=== PATIENT | male | born 1975 | race Caucasian/White ===

== ENCOUNTER 2016-04-04 18:59 | Emergency (ER) | payer OTHER ==
[~2016-04-04] VITALS: Ht 162.6 cm; Wt 86.8 kg
[~2016-04-04 18:59] MED LIST: HYDR-3498 PO; LOPE2CAP PO
[2016-04-04 19:26] VITALS: Ht 162.6 cm; Wt 86.8 kg
[2016-04-04] MEDS ORDERED: FAMOTIDINE 20 MG INJ IV STA (20:24)
[2016-04-04] MEDS ORDERED: ONDANSETRON 4 MG INJ IV STA (20:24)
[2016-04-04] MEDS ORDERED: morphine 4 MG/ML VIAL IV STA (20:24)
--- NOTE | 2016-04-04 20:34 | ERD ---
ER Documentation Chief Complaint Date/Time DATE: 04/04/16 TIME: 20:30 Chief Complaint abdominal pain on and off x 2 hours HPI This is a 41-year-old male presenting to the emergency department complaining of chest pain and epigastric pain for the past hour. Patient states the pain is located midsternal radiating to the left side and complaining of 8 out of 10 epigastric pain. Patient states that the pain started before food, and he states that he ate a sandwich and some other food which worsened the pain. He denies any fever, nausea, vomiting, diaphoresis. Patient denies any history of heart disease, denies drug use. Patient states that he also has been having a cough for the past week and he took DayQuil 2 hours prior to being seen. ROS All systems reviewed and are negative except as per history of present illness. Medications Home Meds Active Scripts Famotidine* (Pepcid*) 20 Mg Tablet, 20 MG PO DAILY for 14 Days, TAB Prov:GILBERT FROST PA-C 04/04/16 Acetaminophen* (Tylenol*) 325 Mg Tablet, 2 TAB PO Q6 Y for PAIN AND OR ELEVATED TEMP, #20 TAB Prov:GILBERT FROST PA-C 04/04/16 Hydrocodone Bit-Acetaminophen* ([place]*) 5-325 Mg Tab, 1 TAB PO Q6 Y for PAIN, # 7 TAB Prov:ANNE BRADSHAW DO 07/17/15 Loperamide Hcl* (Imodium*) 2 Mg Capsule, 2 MG PO .AFTER EA LOOSE BM Y for DIARRHEA, #10 TAB Prov:ANNE BRADSHAW DO 07/17/15 Allergies Allergies: Coded Allergies: No Known Drug Allergies (Verified Allergy, Unknown, 04/04/16) PMhx/Soc Medical and Surgical Hx: pt denies Medical Hx, pt denies Surgical Hx History of Surgery: No Anesthesia Reaction: No Hx Neurological Disorder: No Hx Respiratory Disorders: No Hx Cardiac Disorders: No Hx Psychiatric Problems: No Hx Miscellaneous Medical Probl: No Hx Alcohol Use: No Hx Substance Use: No Hx Tobacco Use: No Smoking Status: Never smoker Physical Exam Vitals Vital Signs Date Time Temp Pulse Resp B/P Pulse Ox O2 Delivery O2 Flow Rate FiO2 04/04/16 19:26 98.6 86 20 131/97 97 Physical Exam GENERAL: well-developed/well-nourished, in no apparent distress, non-toxic appearing HENT: NC/AT, moist mucous membranes EYES: Conjunctiva normal NECK: Supple, no lymphadenopathy PULM: CTA bilaterally, no rales, rhonchi, or wheezing heard CV: Normal S1S2, RRR, good capillary refill GI: Soft, non-distended, tender to palpation epigastric region Normal bowel sounds, no masses or organomegaly felt on exam No gross peritonitis, no bruits Negative Rovsing, negative [place], negative McBurney's point, Negative CVAT BACK: No masses EXT: No clubbing, cyanosis, or edema NEURO: Alert and Orientated SKIN: Intact, normal turgor PSYCH: Normal mood and mentation Result Diagram: 04/04/16215004/04/162150 Results 24 hrs Laboratory Tests Test 04/04/16 21:51 Alanine Aminotransferase (ALT/SGPT) 111IU/L Albumin 4.1g/dl Albumin/Globulin Ratio 1.28 Alkaline Phosphatase 132IU/L Anion Gap 18 Aspartate Amino Transf (AST/SGOT) 44IU/L Basophils # 0.010^3/ul Basophils % 0.4% Blood Urea Nitrogen 17mg/dl Calcium Level 8.9mg/dl Carbon Dioxide Level 25mmol/L Chloride Level 103mmol/L Creatinine 0.91mg/dl Direct Bilirubin 0.00mg/dl Eosinophils # 0.110^3/ul Eosinophils % 1.4% Globulin 3.20g/dl Glucose Level 316mg/dl Hematocrit 44.7% Hemoglobin 15.7g/dl Indirect Bilirubin 0.1mg/dl Lipase 152U/L Lymphocytes # 1.510^3/ul Lymphocytes % 24.0% Mean Corpuscular Hemoglobin 29.8pg Mean Corpuscular Hemoglobin Concent 35.1g/dl Mean Corpuscular Volume 84.8fl Mean Platelet Volume 9.4fl Monocytes # 0.710^3/ul Monocytes % 11.0% Neutrophils # 4.010^3/ul Neutrophils % 63.2% Nucleated Red Blood Cells # 0.010^3/ul Nucleated Red Blood Cells % 0.0/100WBC Platelet Count 69707^3/UL Potassium Level 4.1mmol/L Red Blood Count 5.2710^6/ul Red Cell Distribution Width 12.8% Sodium Level 142mmol/L Total Bilirubin 0.1mg/dl Total Protein 7.3g/dl Troponin I < 0.012ng/ml White Blood Count 6.410^3/ul Current Medications Medications (Trade) Dose Ordered Sig/R[place]a Route PRN Reason Start Time Stop Time Status Last Admin Dose Admin Morphine Sulfate (morphine) 4 mg ONCE STAT IV 04/04/16 20:24 04/04/16 20:25 DC 04/04/16 20:24 Ondansetron HCl (Zofran Inj) 4 mg ONCE STAT IV 04/04/16 20:24 04/04/16 20:25 DC 04/04/16 21:55 Famotidine 20 mg 20 mg ONCE STAT IV 04/04/16 20:24 04/04/16 20:25 DC 04/04/16 20:24 Sodium Chloride (NS) 1,000 ml @ 1,000 mls/hr Q1H STAT IV 04/04/16 22:22 04/04/16 23:21 04/04/16 22:37 Procedures/MDM This is a 41-year-old male presenting to the emergency department complaining of midsternal chest pain that radiates bilaterally and epigastric pain for the past hour. I have reviewed past chart, patient has been here before for abdominal pain. My differentials include but not limited to gastritis, pancreatitis, cholecystitis, acute cardiopulmonary conditions including pneumonia, pulmonary embolism, myocardial infarction. An EKG was done in the ED did not show any evidence of STEMI. Chest x-ray did not show any evidence of infiltrates, pleural effusion or pneumothorax. IV access established. Lab work was drawn. CBC did not show any evidence of leukocytosis or anemia. Glucose is elevated around 315, patient was given 1 L fluids and it went downward, I have discussed with this patient that he will need to follow-up with a primary care physician regarding hyperglycemia. I will low suspicion for DKA. Lipase was normal. Troponin was negative. Patient was given Pepcid, morphine and Zofran in the ED. I have reassessed patient and he had full improvement of symptoms. An ultrasound of the gallbladder was done and radiologist stated that there was possible nonshadowing gallstone versus sludge , I will low suspicion for cholecystitis or cholangitis. Gallbladder ultrasound did show evidence of fatty liver which most likely due to nonalcoholic fatty liver. Patient appears well, stable vital signs. Patient is suitable to follow-up with his primary care physician in regards to hyperglycemia, abdominal pain, fatty liver and biliary colic. Prescription for Tylenol and Pepcid was provided. Discussed return to the ER for any worsening signs or symptoms. Patient understands and agrees with this plan EKG: read and signed off by myself and Rate/Rhythm: Normal Sinus Rhythm at 80bpm QRS, ST, T-waves: No changes consistent w/ acute ischemia Impression: No evidence of ischemia or arrhythmia Departure Diagnosis: Primary Impression: Biliary colic Additional Impressions: Chest pain Chest pain type: unspecified Qualified Code: R07.9 - Chest pain, unspecified type Fatty liver Hyperglycemia Abdominal pain Abdominal location: epigastric Qualified Code: R10.13 - Epigastric pain Condition: Stable GILBERT FROST PA-C Apr 04, 2016 20:34
--- NOTE | 2016-04-04 21:54 | RADRPT ---
PROCEDURE: US Abdomen. CLINICAL INDICATION: Abdominal Pain TECHNIQUE: Multiple real-time images were acquired of the patient's abdomen and retroperitoneum ut ilizing a high resolution transducer. COMPARISON: None available FINDINGS: The liver demonstrates diffuse increased echogenicity. No focal lesions are identified. The liver m easures 19.0 cm in length. The gallbladder is contracted. There is a possible sludge ball or nonsha dowing stone in the gallbladder neck. No intra or extrahepatic biliary dilatation is seen. The comm on bile duct measures 1 mm in maximal dimension. The visualized portions of the pancreas are unrema rkable. No free fluid is identified. The right kidney measures 10.9 cm in long dimension. There is no right hydronephrosis or visualized renal calculi. IMPRESSION: 1. Contracted gallbladder. Possible sludge ball or nonshadowing stone in the gallbladder neck. Co nsider repeat examination when the patient is n.p.o. 2. Fatty and enlarged liver, 19.0 cm in length. 3. No biliary dilatation or right hydronephrosis. RPTAT: HBST .Marquise Rhoades MD, Date Time Electronically viewed and signed by .Marquise Rhoades MD, on 04/04/2016 21:54 .T/
[2016-04-04 22:12] LABS: ALBUMIN 4.1 g/dl (3.3-4.9); BASOPHILS % 0.4 % (0.0-2.0); CHLORIDE 103 mmol/L (97-110); EOSINOPHILS # 0.1 10^3/ul (0.0-0.5); EOSINOPHILS % 1.4 % (0.0-7.0); HEMATOCRIT 44.7 % (42.0-52.0); HEMOGLOBIN 15.7 g/dl (14.0-18.0); LYMPHOCYTES # 1.5 10^3/ul (0.8-2.9); MEAN CORPUSCULAR HEMOGLOBIN 29.8 pg (29.0-33.0); MEAN CORPUSCULAR HGB CONC 35.1 g/dl (32.0-37.0); MEAN CORPUSCULAR VOLUME 84.8 fl (82.0-101.0); MEAN PLATELET VOLUME 9.4 fl (7.4-10.4); MONOCYTE # 0.7 10^3/ul (0.3-0.9); NEUTROPHILS % 63.2 % (39.0-77.0); PLATELET COUNT 172 10^3/UL (140-440); POTASSIUM 4.1 mmol/L (3.5-5.1); RED BLOOD COUNT 5.27 10^6/ul (4.70-6.10); RED CELL DISTRIBUTION WIDTH 12.8 % (11.5-14.5); SODIUM 142 mmol/L (135-144); UNCORRECTED WBC 6.4 10^3/ul (4.8-10.8); WHITE BLOOD COUNT 6.4 10^3/ul (4.8-10.8)
[2016-04-04 22:14] LABS: CREATININE 0.91 mg/dl (0.61-1.24)
[2016-04-04 22:15] LABS: ALANINE AMINOTRANSFERASE 111 IU/L (13-69); ALBUMIN/GLOBULIN RATIO 1.28; ALKALINE PHOSPHATASE 132 IU/L (42-121); ANION GAP 18 (8-16); ASPARTATE AMINO TRANSFERASE 44 IU/L (15-46); BILIRUBIN,INDIRECT 0.1 mg/dl (0-1.1); BILIRUBIN,TOTAL 0.1 mg/dl (0.2-1.3); BLOOD UREA NITROGEN 17 mg/dl (7-20); CALCIUM 8.9 mg/dl (8.4-10.2); CARBON DIOXIDE 25 mmol/L (21-31); GLUCOSE 316 mg/dl (70-220); TOTAL PROTEIN 7.3 g/dl (6.1-8.1)
[2016-04-04 22:20] LABS: CONDITION 1
[2016-04-04] MEDS ORDERED: SOD CHLORIDE 0.9% 1,000 ML IV STA (22:22)
--- NOTE | 2016-04-04 22:25 | RADRPT ---
PROCEDURE: XR Chest. CLINICAL INDICATION: Chest pain. TECHNIQUE: Single frontal view. COMPARISON: None. FINDINGS: The lungs are clear. The heart size is normal. There is no pleural effusion. There is no pneumothorax. IMPRESSION: 1. Normal chest radiograph. RPTAT: QQ .Steve Interiano MD, Date Time Electronically viewed and signed by .Steve Interiano MD, on 04/04/2016 22:24 .R/
[2016-04-04 22:29] LABS: TROPONIN-I < 0.012 ng/ml (0.00-0.12)
[2016-04-04] MEDS ORDERED: FAMO-18 PO (22:35)
[2016-04-04] MEDS ORDERED: ACET325T33 PO (22:35)
[2016-04-05 02:02] VITALS: BP 132/80; PULSE 78; RESP 78; TEMP 98.3
== END 2016-04-05 02:04 | disposition home or self-care (01) ==
LOC: FTE 18:59
DX: K80.50 Calculus of bile duct without cholangitis or cholecystitis without obstruction (principal); K76.0 Fatty (change of) liver, not elsewhere classified; R73.9 Hyperglycemia, unspecified; R10.13 Epigastric pain
CPT/HCPCS: 36415; 71010; 76705; 80053; 83690; 84484; 85025; 93005; 96374; 96375; J2270; J2405; J7030; Z7502; Z7610

== ENCOUNTER 2016-07-27 20:41 | Inpatient (IN) | payer OTHER ==
[~2016-07-27] VITALS: Ht 162.6 cm; Wt 87.5 kg
[~2016-07-27 20:41] MED LIST changes: +ACET325T33 PO; +FAMO-18 PO
[2016-07-27] MEDS ORDERED: LACTATED RINGER'S 1,000 ML IV STA (22:15)
[2016-07-27] MEDS ORDERED: SOD CHLORIDE 0.9% 1,000 ML IV STA (22:15)
[2016-07-27] MEDS ORDERED: SOD CHLORIDE 0.9% 500 ML IV STA (22:15)
[2016-07-27 22:27] LABS: ADD SCAN DIFF NO
[2016-07-27 22:29] LABS: BASOPHILS % 0.2 % (0.0-2.0); EOSINOPHILS % 0.3 % (0.0-7.0); HEMATOCRIT 24.4 % (42.0-52.0); HEMOGLOBIN 8.4 g/dl (14.0-18.0); LYMPHOCYTES # 2.2 10^3/ul (0.8-2.9); LYMPHOCYTES % 17.8 % (15.0-51.0); MEAN CORPUSCULAR HEMOGLOBIN 29.4 pg (29.0-33.0); MEAN CORPUSCULAR HGB CONC 34.4 g/dl (32.0-37.0); MEAN CORPUSCULAR VOLUME 85.3 fl (82.0-101.0); MEAN PLATELET VOLUME 11.2 fl (7.4-10.4); NEUTROPHIL # 9.1 10^3/ul (1.6-7.5); NEUTROPHILS % 72.6 % (39.0-77.0); NUCLEATED RED BLOOD CELLS # 0.1 10^3/ul (0.0-0.0); PLATELET COUNT 191 10^3/UL (140-415); RED BLOOD COUNT 2.86 10^6/ul (4.70-6.10); RED CELL DISTRIBUTION WIDTH 12.6 % (11.5-14.5); WHITE BLOOD COUNT 12.5 10^3/ul (4.8-10.8)
[2016-07-27 22:46] LABS: ALANINE AMINOTRANSFERASE 48 IU/L (13-69); ALBUMIN/GLOBULIN RATIO 2.22; ALKALINE PHOSPHATASE 70 IU/L (42-121); ANION GAP 11 (8-16); ASPARTATE AMINO TRANSFERASE 16 IU/L (15-46); BILIRUBIN,INDIRECT 0.2 mg/dl (0-1.1); BILIRUBIN,TOTAL 0.2 mg/dl (0.2-1.3); BLOOD UREA NITROGEN 28 mg/dl (7-20); CALCIUM 8.4 mg/dl (8.4-10.2); CARBON DIOXIDE 24 mmol/L (21-31); CHLORIDE 103 mmol/L (97-110); CREATININE 0.81 mg/dl (0.61-1.24); MAGNESIUM 1.9 mg/dl (1.7-2.5); POTASSIUM 4.3 mmol/L (3.5-5.1); SODIUM 134 mmol/L (135-144); TOTAL PROTEIN 5.8 g/dl (6.1-8.1)
[2016-07-27 22:54] LABS: GLUCOSE 441 mg/dl (70-220)
[2016-07-27 22:57] LABS: TROPONIN-I < 0.012 ng/ml (0.00-0.12)
--- NOTE | 2016-07-27 23:00 | RADRPT ---
PROCEDURE: CT Brain without contrast. CLINICAL INDICATION: Headache. Hyperglycemia. TECHNIQUE: A CT of the brain was performed on a multidetector CT scanner utilizing axial sections from the skull base through the vertex without contrast. Images were reviewed on a high-resolution [employer] workstation. Exam CTDI = 42.69 mGy and the DLP = 720.23 mGy-cm. One or more of the following dose reduction techniques were used: Automated exposure control Adjustment of the mA and/or kV according to patient size. Use of iterative reconstruction technique. COMPARISON: None available FINDINGS: There is no evidence of intracranial hemorrhage, mass effect or midline shift. No abnormal intra-ax ial or extra-axial fluid collections are seen. The density of the brain is normal and the ko/whit e matter differentiation is well preserved. The osseous structures are unremarkable. Paranasal sin uses are clear. IMPRESSION: 1. No intracranial hemorrhage, mass effect or midline shift. RPTAT: HHO .Lynette Hobbs MD, MD Date Time Electronically viewed and signed by .Lynette Hobbs MD, on 07/27/2016 22:59 .O/
[2016-07-27 23:19] LABS: ADD UMIC NO; UR BILIRUBIN (Dip) NEGATIVE (NEGATIVE); UR BLOOD (Dip) NEGATIVE (NEGATIVE); UR CLARITY CLEAR (CLEAR); UR COLOR LT. YELLOW (YELLOW); UR GLUCOSE (Dip) >=1000 % (NEGATIVE); UR KETONES (Dip) 15 (NEGATIVE); UR LEUKOCYTE ESTERASE (Dip) NEGATIVE (NEGATIVE); UR NITRITE (Dip) NEGATIVE (NEGATIVE); UR TOTAL PROTEIN (Dip) NEGATIVE (NEGATIVE); UR UROBILINOGEN (Dip) 0.2 E.U./dL (0.1-1.0)
[2016-07-27] MEDS ORDERED: KETOROLAC 30 MG INJ IV STA (23:45)
[2016-07-28] MEDS ORDERED: METOCLOPRAMIDE 10 MG INJ IV ONE
--- NOTE | 2016-07-28 00:01 | RADRPT ---
PROCEDURE: XR Chest. CLINICAL INDICATION: Headache. Hyperglycemia.. TECHNIQUE: Single frontal chest x-ray. COMPARISON: None. FINDINGS: The cardiomediastinal silhouette is unremarkable. There is no congestive heart failure.. No focal i nfiltrate is seen. There is no pleural effusion. There is no pneumothorax. The osseous structures are unremarkable. IMPRESSION: 1. No active disease. RPTAT: HMVK .Chris Viveros MD, MD Date Time Electronically viewed and signed by .Chris Viveros MD, on 07/28/2016 00:00 .K/
--- NOTE | 2016-07-28 00:24 | ERA ---
ER Documentation Chief Complaint Date/Time DATE: 07/28/16 TIME: 00:24 Chief Complaint dizziness, blurry vision, dry mouth x 2 days, headache, chest pain HPI 41-year-old previously healthy male presenting with complaints of generalized weakness, dizziness, palpitations, blurry vision, and dry mouth for the past 2 days. He has also been suffering from a gradual onset headache for the last 2 days as well. He denies any associated chest pain or shortness of breath. No fevers, chills, recent URI, cough, abdominal pain, nausea, vomiting dysuria, diarrhea. He has noticed that he has been very thirsty for the past 2 days drinking a lot of water and urinating a lot. ROS All systems reviewed and are negative except as per history of present illness. Medications Home Meds Discontinued Scripts Famotidine* (Pepcid*) 20 Mg Tablet, 20 MG PO DAILY for 14 Days, TAB Prov:GILBERT FROST PA-C 04/04/16 Acetaminophen* (Tylenol*) 325 Mg Tablet, 2 TAB PO Q6 Y for PAIN AND OR ELEVATED TEMP, #20 TAB Prov:GILBERT FROST PA-C 04/04/16 Hydrocodone Bit-Acetaminophen* ([place]*) 5-325 Mg Tab, 1 TAB PO Q6 Y for PAIN, # 7 TAB Prov:ANNE BRADSHAW DO 07/17/15 Loperamide Hcl* (Imodium*) 2 Mg Capsule, 2 MG PO .AFTER EA LOOSE BM Y for DIARRHEA, #10 TAB Prov:ANNE BRADSHAW DO 07/17/15 Allergies Allergies: Coded Allergies: No Known Drug Allergies (Verified Allergy, Unknown, 07/27/16) PMhx/Soc Medical and Surgical Hx: pt denies Medical Hx, pt denies Surgical Hx History of Surgery: No Anesthesia Reaction: No Hx Neurological Disorder: No Hx Respiratory Disorders: No Hx Cardiac Disorders: No Hx Psychiatric Problems: No Hx Miscellaneous Medical Probl: No Hx Alcohol Use: No Hx Substance Use: No Hx Tobacco Use: No Smoking Status: Never smoker FmHx Family History: No coronary disease, No diabetes Physical Exam Vitals Vital Signs Date Time Temp Pulse Resp B/P Pulse Ox O2 Delivery O2 Flow Rate FiO2 07/27/16 23:07 109 16 105/68 100 Room Air 07/27/16 20:44 99.2 144 20 110/69 98 Physical Exam Const: Nontoxic, no apparent distress, pale Head: Atraumatic Eyes: Normal Conjunctiva ENT: Dry oral mucosa Neck: Full range of motion..~ No meningismus. Resp: Clear to auscultation bilaterally Cardio: Tachycardic with regular rhythm, no murmurs. 2+ distal pulses Abd: Soft, non tender, non distended. Normal bowel sounds Skin: No petechiae or rashes. Generalized pallor noted Back: No midline or flank tenderness Ext: No cyanosis, or edema Neur: Awake and alert and oriented 3, cranial nerves intact, strength and sensations intact in all 4 extremities Psych: Normal Mood and Affect Result Diagram: 07/27/16215507/27/162155 Results 24 hrs Laboratory Tests Test 07/27/16 21:56 07/27/16 22:09 07/27/16 23:05 White Blood Count 12.510^3/ul Red Blood Count 2.8610^6/ul Hemoglobin 8.4g/dl Hematocrit 24.4% Mean Corpuscular Volume 85.3fl Mean Corpuscular Hemoglobin 29.4pg Mean Corpuscular Hemoglobin Concent 34.4g/dl Red Cell Distribution Width 12.6% Platelet Count 52392^3/UL Mean Platelet Volume 11.2fl Neutrophils % 72.6% Lymphocytes % 17.8% Monocytes % 8.0% Eosinophils % 0.3% Basophils % 0.2% Nucleated Red Blood Cells % 1.0/100WBC Neutrophils # 9.110^3/ul Lymphocytes # 2.210^3/ul Monocytes # 1.010^3/ul Eosinophils # 0.010^3/ul Basophils # 0.010^3/ul Nucleated Red Blood Cells # 0.110^3/ul Sodium Level 134mmol/L Potassium Level 4.3mmol/L Chloride Level 103mmol/L Carbon Dioxide Level 24mmol/L Anion Gap 11 Blood Urea Nitrogen 28mg/dl Creatinine 0.81mg/dl Glucose Level 441mg/dl Lactic Acid Level 2.6mmol/L Calcium Level 8.4mg/dl Phosphorus Level 3.0mg/dl Magnesium Level 1.9mg/dl Total Bilirubin 0.2mg/dl Direct Bilirubin 0.00mg/dl Indirect Bilirubin 0.2mg/dl Aspartate Amino Transf (AST/SGOT) 16IU/L Alanine Aminotransferase (ALT/SGPT) 48IU/L Alkaline Phosphatase 70IU/L Troponin I < 0.012ng/ml Total Protein 5.8g/dl Albumin 4.0g/dl Globulin 1.80g/dl Albumin/Globulin Ratio 2.22 Bedside Glucose 455mg/dL Urine Color LT. YELLOW Urine Clarity CLEAR Urine pH 5.5 Urine Specific [place] <=1.005 Urine Ketones 15 Urine Nitrite NEGATIVE Urine Bilirubin NEGATIVE Urine Urobilinogen 0.2 E.U./dL Urine Leukocyte Esterase NEGATIVE Urine Hemoglobin NEGATIVE Urine Glucose >=1000% Urine Total Protein NEGATIVE Current Medications Medications (Trade) Dose Ordered Sig/[place] Route PRN Reason Start Time Stop Time Status Last Admin Dose Admin Sodium Chloride 500 ml @ 500 mls/hr Q1H STAT IV 07/27/16 22:15 07/27/16 23:14 DC 07/27/16 22:29 Sodium Chloride 1,000 ml @ 1,050 mls/hr Q58M STAT IV 07/27/16 22:15 07/27/16 23:12 DC 07/27/16 22:21 Lactated Ringer's (Lr) 1,000 ml @ 1,000 mls/hr Q1H STAT IV 07/27/16 22:15 07/27/16 23:14 DC 07/27/16 22:21 Ketorolac Tromethamine (Toradol) 30 mg ONCE STAT IV 07/27/16 23:45 07/27/16 23:46 DC 07/27/16 23:52 Metoclopramide HCl (Reglan) 10 mg ONCE ONCE IV 07/28/16 00:00 07/28/16 00:01 DC 07/27/16 23:52 Procedures/MDM EMERGENT LABS AND DIAGNOSTIC STUDIES: Lab Results above were reviewed and interpreted by me. CBC shows leukocytosis and anemia BMP shows mild hyponatremia, hyperglycemia, elevated BUN, no evidence of acidosis Lactate elevated 2.6 Urinalysis shows no evidence of infection 12-lead EKG was interpreted by Ty Mao MD: Sinus tachycardia at 140 beats per minute Normal axis Normal intervals No acute ST or T wave changes suggestive of acute ischemia or STEMI. Radiology Results as interpreted by Radiology below were reviewed by Yvette Mao MD: Chest x-ray shows no acute abnormalities CT head shows no acute abnormalities Initial Nursing notes reviewed. Previous Medical Records requested via the Electronic Health Record. EMERGENCY DEPARTMENT COURSE / MEDICAL DECISION MAKING: Patient is presenting with hypotension and tachycardia with signs of severe dehydration on exam. 30 cc/kg of IV fluids were started. Accu-Chek was done, confirming hyperglycemia. Labs confirmed evidence of new onset diabetes without evidence of acidosis. His lactate is elevated, however I do not suspect sepsis. This is more likely secondary to hypoperfusion due to hypovolemia. He does not have any evidence of infection on exam. It is unclear why he is anemic, as he has no evidence of blood loss or any history of blood loss. Patient will be admitted for further management of new onset diabetes and further hydration. Insulin subcutaneously was given in the ED 8 units. I will defer any further workup and management to the inpatient team as the patient vitals have stabilized in the ED. Critical Care Time: 45 minutes Treatments/Evaluations: Close monitoring and treatment of unstable vital signs, cardiorespiratory, and neurologic status, while maintaining tight balance of fluid, respiratory, and cardiac interventions. This time includes discussing the case with the patient and the patients family. This time does not include all procedures stated elsewhere in this record. This time also includes reviewing old records, labs and radiological studies. This time includes examining and re-examining the patient. Additionally, this time also includes arranging care with admitting and consulting physicians. Accepting Care Team: Current data and ongoing care discussed. Time: Time of admission Primary Provider: Nancy Koch Consulting: none Outstanding Data: none Departure Diagnosis: Primary Impression: Diabetes mellitus, new onset Additional Impressions: Dehydration Lactic acidosis Anemia Qualified Code: D64.89 - Anemia due to other cause, not classified Condition: Serious CARLOS MAO MD Jul 28, 2016 00:24
[2016-07-28] MEDS ORDERED: ONDANSETRON 4 MG INJ IV PRN (00:30)
[2016-07-28] MEDS ORDERED: ACETAMINOPHEN 325 MG TAB PO PRN (00:30)
[2016-07-28] MEDS ORDERED: INSULIN ASPART [NOVOLOG] 3 ML PEN SC ONE (01:00)
[2016-07-28] MEDS ORDERED: SOD CHLORIDE 0.9% 500 ML IV ONE (02:30)
[2016-07-28 02:38] VITALS: BP 109/58; RESP 18
[2016-07-28 02:44] VITALS: Ht 162.6 cm; Wt 87.5 kg
[2016-07-28] MEDS ORDERED: DEXTROSE 50% 50 ML SYRINGE IV PRN ×2 (03:30)
[2016-07-28] MEDS ORDERED: GLUCOSE GEL 15 GRAM TUBE PO PRN ×2 (03:30)
[2016-07-28] MEDS ORDERED: GLUCAGON 1 MG INJ IM PRN (03:30)
[2016-07-28] MEDS ORDERED: GLUCOSE GEL 15 GRAM TUBE BUCCAL PRN (03:30)
[2016-07-28] MEDS ORDERED: HYDROCODONE/APAP (5/325) TAB PO PRN (04:00)
[2016-07-28 07:48] LABS: MODE ROOM AIR; MetHgb Venous 0.7 %; Sample Type Blood venous; Venous COHb 0.3 %; Venous Fraction OxyHgb 86.9 %; Venous Total Hemglobin 8.3 g/dl
[2016-07-28 08:00] VITALS: BP 97/54; RESP 19
[2016-07-28] MEDS: INSULIN ASPART [NOVOLOG] 3 ML PEN SC SCH ×4 (08:40→23:17)
--- NOTE | 2016-07-28 14:55 | HP ---
Date/Time of Note Date/Time of Note DATE: 07/28/16 TIME: 12:34 Assessment/Plan VTE Prophylaxis VTE Prophylaxis Intervention: ambulation (as tolerated), SCD's Lines/Catheters IV Catheter Type (from Nrsg): Saline Lock Assessment/Plan Assessment/Plan -Diabetes mellitus, new onset. BS on admission 455- lowered to 283. Will get endocrinology - Glycemic control - Hb AIC - 1800 jeff ADA DIET - Dietary consult - tinter photograph consult - Leukocytosis- possibly sec to stress reaction, afebrile, lactic acid 1.3 -Dehydration- cont IVF- 1/2 NS at 60 cc/hr -Lactic acidosis - LACTIC ACID 1.3 -Anemia - CBC am - monitor H/H Plan of care dw Dr Armas/staff/family HPI/ROS Admit Date/Time Admit Date/Time Jul 28, 2016 at 00:24 Hx of Present Illness Chief Complaint dizziness, blurry vision, dry mouth x 2 days, headache, chest pain HPI 41-year-old previously healthy male presenting with complaints of generalized weakness, dizziness, palpitations, blurry vision, and dry mouth for the past 2 days. He has also been suffering from a gradual onset headache for the last 2 days as well. He denies any associated chest pain or shortness of breath. No fevers, chills, recent URI, cough, abdominal pain, nausea, vomiting dysuria, diarrhea. He has noticed that he has been very thirsty for the past 2 days drinking a lot of water and urinating a lot. ROS All systems reviewed and are negative except as per history of present illness. Medications Home Meds Discontinued Scripts Famotidine* (Pepcid*) 20 Mg Tablet, 20 MG PO DAILY for 14 Days, TAB Prov:GILBERT FROST PA-C 04/04/16 Acetaminophen* (Tylenol*) 325 Mg Tablet, 2 TAB PO Q6 Y for PAIN AND OR ELEVATED TEMP, #20 TAB Prov:GILBERT FROST PA-C 04/04/16 Hydrocodone Bit-Acetaminophen* ([place]*) 5-325 Mg Tab, 1 TAB PO Q6 Y for PAIN, # 7 TAB Prov:ANNE BRADSHAW DO 07/17/15 Loperamide Hcl* (Imodium*) 2 Mg Capsule, 2 MG PO .AFTER EA LOOSE BM Y for DIARRHEA, #10 TAB Prov:ANNE BRADSHAW DO 07/17/15 Allergies Allergies: Coded Allergies: No Known Drug Allergies (Verified Allergy, Unknown, 07/27/16) ROS Constitutional: improved Eyes: no complaints Respiratory: no complaints Cardiovascular: no complaints Gastrointestinal: no complaints Genitourinary: no complaints Musculoskeletal: no complaints Skin: no complaints Neurologic: no complaints Endocrine: dry skin PMH/Family/Social Past Medical History PMhx/Soc Medical and Surgical Hx: pt denies Medical Hx, pt denies Surgical Hx History of Surgery: No Anesthesia Reaction: No Hx Neurological Disorder: No Hx Respiratory Disorders: No Hx Cardiac Disorders: No Hx Psychiatric Problems: No Hx Miscellaneous Medical Probl: No Hx Alcohol Use: No Hx Substance Use: No Hx Tobacco Use: No Smoking Status: Never smoker FmHx Family History: No coronary disease, No diabetes Social History Alcohol Use: none Smoking Status: Never smoker Drug Use: none Exam/Review of Systems Vital Signs Vitals Vital Signs Date Time Temp Pulse Resp B/P Pulse Ox O2 Delivery O2 Flow Rate FiO2 07/28/16 08:00 97.9 86 19 97/54 99 07/28/16 02:09 Room Air Intake and Output 07/27/16 07/27/16 07/28/16 15:00 23:00 07:00 Intake Total 700 ml Balance 700 ml Exam Constitutional: alert, oriented Psych: nl mood/affect ENMT: mucosa pink and moist Respiratory: clear to auscultation, normal air movement Cardiovascular: nl pulses, regular rate and rhythm Gastrointestinal: non-tender, soft Musculoskeletal: nl extremities to inspection Extremities: normal pulses Neurological: nl mental status, nl speech Skin: nl turgor Labs Result Diagram: 07/27/16215507/27/162155 Medications Medications Current Medications Diagnostic Test (Pha) (Accu-Chek) 1 ea 02 XX ; Start 07/29/16 at 02:00 Miscellaneous Information 1 ea NOTE XX ; Start 07/28/16 at 03:30 Glucose (Glutose) 15 gm Q15M PRN PO DECREASED GLUCOSE; Start 07/28/16 at 03:30 Glucose (Glutose) 22.5 gm Q15M PRN PO DECREASED GLUCOSE; Start 07/28/16 at 03: 30 Dextrose (D50w Syringe) 25 ml Q15M PRN IV DECREASED GLUCOSE; Start 07/28/16 at 03:30 Dextrose (D50w Syringe) 50 ml Q15M PRN IV DECREASED GLUCOSE; Start 07/28/16 at 03:30 Glucagon (Glucagen) 1 mg Q15M PRN IM DECREASED GLUCOSE; Start 07/28/16 at 03:30 Glucose (Glutose) 15 gm Q15M PRN BUCCAL DECREASED GLUCOSE; Start 07/28/16 at 03 :30 Acetaminophen/ Hydrocodone Bitart ([place] (5/325)) 1 tab Q6H PRN PO PAIN Last administered on 07/28/16t 03:50; Admin Dose 1 TAB; Start 07/28/16 at 04:00 Procedures Procedures Procedures/MDM EMERGENT LABS AND DIAGNOSTIC STUDIES: Lab Results above were reviewed and interpreted by me. CBC shows leukocytosis and anemia BMP shows mild hyponatremia, hyperglycemia, elevated BUN, no evidence of acidosis Lactate elevated 2.6 Urinalysis shows no evidence of infection 12-lead EKG was interpreted by Ty Mao MD: Sinus tachycardia at 140 beats per minute Normal axis Normal intervals No acute ST or T wave changes suggestive of acute ischemia or STEMI. LISETTE MELENDEZ Jul 28, 2016 12:48
[2016-07-28] MEDS ORDERED: SOD CHLORIDE 0.45% 1,000 ML IV SCH (15:00)
[2016-07-28] MEDS ORDERED: INSULIN GLARGINE [LANtus] 3 ML PEN SC SCH (16:00)
[2016-07-28] MEDS ORDERED: INSULIN ASPART [NOVOLOG] 3 ML PEN SC SCH (17:35)
[2016-07-28 17:49] LABS: ADD SCAN DIFF NO
[2016-07-28 18:15] LABS: CALCIUM 7.3 mg/dl (8.4-10.2); CREATININE 0.67 mg/dl (0.61-1.24); POTASSIUM 3.8 mmol/L (3.5-5.1)
[2016-07-28 18:25] LABS: ABNORMAL IP MESSAGE 1; HEMATOCRIT 14.7 % (42.0-52.0); MEAN CORPUSCULAR HEMOGLOBIN 30.9 pg (29.0-33.0); MEAN CORPUSCULAR HGB CONC 34.7 g/dl (32.0-37.0); MEAN CORPUSCULAR VOLUME 89.1 fl (82.0-101.0); MEAN PLATELET VOLUME 11.3 fl (7.4-10.4); PLATELET COUNT 141 10^3/UL (140-415); RED BLOOD COUNT 1.65 10^6/ul (4.70-6.10); RED CELL DISTRIBUTION WIDTH 13.2 % (11.5-14.5); WHITE BLOOD COUNT 8.9 10^3/ul (4.8-10.8)
[2016-07-28] MEDS ORDERED: SOD CHLORIDE 0.9% 250 ML IV* ONE (18:33)
--- NOTE | 2016-07-28 18:48 | CONS ---
DATE OF ADMISSION: 07/28/2016 DATE OF CONSULTATION: 07/28/2016 GASTROENTEROLOGY CONSULTATION HISTORY OF PRESENT ILLNESS: A 41-year-old male who comes to the emergency room complaining of heada nigel, profound weakness, increased thirst and also abdominal pain, nausea, vomiting and heartburn. I n the ER, the patient was evaluated. The blood sugar was high. He was admitted for the above furth er management. GI consult was called in for anemia. Patient is sleepy because he got some narcotic shot most of the information obtained from the and also mother. No chest pain, no shortness o f breath. Review of systems otherwise negative. HOME MEDICATIONS: Reviewed. He was on: 1. Famotidine. 2. Tylenol. 3. [place]. 4. Loperamide. ALLERGIES: NONE. FAMILY HISTORY: Nothing significant. SOCIAL HISTORY: Does not smoke or drink. FAMILY HISTORY: Nothing contributory. PHYSICAL EXAMINATION: GENERAL: Well-built, nourished, not in distress. VITAL SIGNS: Stable. HEENT: Unremarkable. NECK: Supple, no thyromegaly, no lymphadenopathy. CARDIOVASCULAR: No murmur, gallop or click. LUNGS: Clear. ABDOMEN: Benign. EXTREMITIES: No edema. CENTRAL NERVOUS SYSTEM: Grossly within normal limits. LABORATORY DATA: His hematocrit is 24.4, WBC is 12.5, normochromic, normocytic. Platelet count was normal. There are no atypical cells identified. Chemistry: Blood sugar is 264. BUN is 28, creati nine is 0.81. Liver function tests all within normal limits. IMPRESSION: 1. Diabetes mellitus, new onset. 2. Anemia. 3. Abdominal pain, nausea, vomiting. PLAN: Control the blood sugar, hemoglobin A1c, diabetic diet. Continue H2 slime and Zofran for n ausea and vomiting, and we will work him up for the anemia. B12, folic acid, ferritin level, retic count and stool for occult blood. Based on that finding, we will decide regarding further workup. Thank you for your kind referral. Dictated By: WIL STALEY/EMMA Conf#: [id number] DID#: [id number] CC: WIL ESTRADA MD; NEREYDA CISSE MD;*EndCC*
--- NOTE | 2016-07-28 18:50 | EN ---
Date/Time of Note Date/Time of Note DATE: 07/28/16 TIME: 18:48 Event Note Medicine Medicine Event Note Rapid Response Note Presented to evaluate patient after RR called overhead. 41 yo M with new onset DM in hospital for hyperglycemia. RR called bc when pt ambualted out of the washroom, family reported that he appeared to have fainted , hitting his head on the way down. My exam: vitals notable for HR in the 120s laying in bed, moaning, pale, following commands tachy lungs clear abd soft no rashes accucheck 330 RN informed me she was away during pt's fall as she was taking a critical lab that pt's hgb was 5. Just as I saw leaving the room I was informed pt's primary attending and contract paralegal client consultant were also on the arteaga. We briefly discussed the matter and they stated that they were aware and would be coordinating appropriate follow up. Pt's RN appraised of this info. Erlin Hicks MD panel hospitalist ERLIN HICKS MD Jul 28, 2016 18:50
[2016-07-28 19:12] LABS: LYMPHOCYTES # 1.9 10^3/ul (0.8-2.9); MONOCYTE # 0.2 10^3/ul (0.3-0.9); NEUTROPHIL # 6.7 10^3/ul (1.6-7.5)
[2016-07-28 19:13] LABS: PLATELET ESTIMATE PLT APPEAR ADEQUATE
[2016-07-28] MEDS: SOD CHLORIDE 0.9% 1,000 ML IV SCH (19:55)
[2016-07-28 20:00] VITALS: PULSE 136; PULSE 137; RESP 12
[2016-07-28 21:00] VITALS: BP 100/55; PULSE 140; RESP 21
[2016-07-28 22:00] VITALS: BP 107/74; PULSE 138
[2016-07-28 23:00] VITALS: BP 121/65; PULSE 141
[2016-07-28] MEDS: ACETAMINOPHEN 325 MG TAB PO PRN (23:22)
[2016-07-29] VITALS (32 sets, daily range): BP systolic 83–127; BP diastolic 46–103; PULSE 75–126; RESP 13–20
[2016-07-29] MEDS: PIPER-TAZO 3.375 GM IV (PMX) 100 ML IVPB SCH ×5 (01:18→23:59)
[2016-07-29] MEDS ORDERED: ACCU-CHEK XX SCH ×3 (02:00)
[2016-07-29] MEDS: SOD CHLORIDE 0.9% 1,000 ML IV SCH ×2 (03:00→13:45)
[2016-07-29] MEDS: PANTOPRAZOLE 40 MG INJ IV SCH ×2 (05:50→18:32)
[2016-07-29 07:12] LABS: ADD SCAN DIFF NO
--- NOTE | 2016-07-29 07:19 | PN ---
DATE: 07/28/2016 ADDENDUM Patient recently had a syncopal episode. Patient was in the restroom and was trying to get up from the toilet seat. Patient also looked pale and lethargic, although he was responsive. Meanwhile, a stat CBC revealed hemoglobin of 5.1. The patient's vital signs were stable. I spoke with Dr. Lawrence from GI standpoint. The patient will be transferred to the ICU. The patient was put on Protonix and will receive 3 units of PRBC. Stool studies have been ordered. We will also obtain coagulation profile. Will continue to monitor his H and H. The patient did not have any hematemesis or melena. No reported abdominal pain. The patient does not have thrombocytopenia. Further management will depend on patient's hospital course. Plan of care discussed with the patient's with the help of systems software manager. Dictated By: NEREYDA MCKINNEY/EMMA Conf#: [id number] DID#: [id number] MTDArlet
[2016-07-29 07:25] LABS: ABNORMAL IP MESSAGE 1; BASOPHILS % 0.1 % (0.0-2.0); EOSINOPHILS % 0.3 % (0.0-7.0); HEMATOCRIT 19.1 % (42.0-52.0); LYMPHOCYTES # 2.1 10^3/ul (0.8-2.9); LYMPHOCYTES % 22.1 % (15.0-51.0); MEAN CORPUSCULAR HGB CONC 35.1 g/dl (32.0-37.0); MEAN CORPUSCULAR VOLUME 88.4 fl (82.0-101.0); MONOCYTE # 0.8 10^3/ul (0.3-0.9); MONOCYTES % 8.6 % (0.0-11.0); NEUTROPHIL # 6.1 10^3/ul (1.6-7.5); NEUTROPHILS % 66.3 % (39.0-77.0); NUCLEATED RED BLOOD CELLS # 0.2 10^3/ul (0.0-0.0); NUCLEATED RED BLOOD CELLS% 1.8 /100WBC (0.0-0.0); PLATELET COUNT 121 10^3/UL (140-415); RED BLOOD COUNT 2.16 10^6/ul (4.70-6.10); RED CELL DISTRIBUTION WIDTH 13.3 % (11.5-14.5); WHITE BLOOD COUNT 9.3 10^3/ul (4.8-10.8)
[2016-07-29 07:27] LABS: RETICULOCYTE COUNT % 5.1 % (0.5-1.5)
[2016-07-29 07:33] LABS: HEMOGLOBIN 6.7 g/dl (14.0-18.0)
[2016-07-29 07:34] LABS: INR 1.2; PROTIME 15.3 Sec (12.2-14.2); PT RATIO 1.2
[2016-07-29 07:35] LABS: PARTIAL THROMBOPLASTIN TIME 24.6 Sec (25.0-35.0)
[2016-07-29 07:42] LABS: IRON 93 ug/dl (35-150)
[2016-07-29 07:50] LABS: CALCIUM 7.1 mg/dl (8.4-10.2); CREATININE 0.71 mg/dl (0.61-1.24); POTASSIUM 3.5 mmol/L (3.5-5.1)
[2016-07-29 07:51] LABS: TOTAL IRON BINDING CAPACITY 267 ug/dl (241-421)
[2016-07-29] MEDS ORDERED: DEXTROSE 50% 50 ML SYRINGE IV PRN ×2 (08:00)
[2016-07-29] MEDS: ACCU-CHEK XX SCH ×16 (08:00→23:00)
[2016-07-29 08:15] LABS: THYROID STIMULATING HORMONE 1.21 MIU/L (0.465-4.680)
[2016-07-29] MEDS: INSULIN ASPART [NOVOLOG] 3 ML PEN SC SCH ×3 (08:44→17:35)
[2016-07-29 08:49] LABS: FOLATE 13.9 ng/ml (2.8-20.0)
[2016-07-29 09:27] LABS: FERRITIN 47.4 ng/ml (17.9-464.0)
[2016-07-29] MEDS: INSULIN HUMAN REGULAR 100 UNIT in SOD CHLORIDE 0.9% 99 ML IV SCH (09:34)
--- NOTE | 2016-07-29 09:44 | RADRPT ---
PROCEDURE: XR Chest 1 View. CLINICAL INDICATION: Shortness of breath. TECHNIQUE: AP view of the chest was obtained. COMPARISON: July 27, 2016 FINDINGS: The cardiomediastinal silhouette is within normal limits. The lungs are hypoinflated. No consolidati ons are identified. No pneumothorax is seen. Calcified granulomas in the right lung are unchanged. Osseous structures are intact. IMPRESSION: Hypoinflated lungs. Calcified granulomatous disease in the right lung. RPTAT: AA .Elpidio Vance MD, Date Time Electronically viewed and signed by .Elpidio Vance MD, on 07/29/2016 09:44 .P/
[2016-07-29 11:00] LABS: ADD SCAN DIFF NO
[2016-07-29 11:06] LABS: BASOPHILS % 0.2 % (0.0-2.0); EOSINOPHILS # 0.1 10^3/ul (0.0-0.5); EOSINOPHILS % 0.6 % (0.0-7.0); HEMATOCRIT 23.3 % (42.0-52.0); HEMOGLOBIN 7.9 g/dl (14.0-18.0); LYMPHOCYTES # 2.3 10^3/ul (0.8-2.9); MEAN CORPUSCULAR HEMOGLOBIN 29.6 pg (29.0-33.0); MEAN CORPUSCULAR HGB CONC 33.9 g/dl (32.0-37.0); MEAN CORPUSCULAR VOLUME 87.3 fl (82.0-101.0); MEAN PLATELET VOLUME 10.6 fl (7.4-10.4); MONOCYTE # 0.8 10^3/ul (0.3-0.9); NEUTROPHIL # 6.4 10^3/ul (1.6-7.5); NUCLEATED RED BLOOD CELLS # 0.2 10^3/ul (0.0-0.0); PLATELET COUNT 109 10^3/UL (140-415); RED BLOOD COUNT 2.67 10^6/ul (4.70-6.10); RED CELL DISTRIBUTION WIDTH 13.4 % (11.5-14.5); WHITE BLOOD COUNT 9.8 10^3/ul (4.8-10.8)
--- NOTE | 2016-07-29 11:57 | CONS ---
Date/Time of Note Date/Time of Note DATE: 07/29/16 TIME: 11:54 Assessment/Plan Assessment/Plan Additional Assessment/Plan IMPRESSION: 1. Diabetes mellitus, new onset. 2. Anemia. 3. Abdominal pain, nausea, vomiting. Plan Patient hematocrit is still he needs 1 more unit of packed cell RBC transfusion. He has not had a bowel movement. No stool was sent for occult blood. Ferritin is 42. Reticulocyte count was high. Patient claims he was passing dark colored stool before he got hospitalized. We will proceed with EGD once more stable. Discussed with the patient and the mother and are in agreement for the procedure. Consultation Date/Type/Reason Admit Date/Time Jul 28, 2016 at 00:24 Initial Consult Date 24 HR Interval Summary Free Text/Dictation Patient hematocrit dropped down significantly today and was transferred to intensive care unit. I discussed with both the patient and the mother during the process of transfer he absolutely denied of passing black stool. No bleeding per rectum. Patient also was not on any ulcerogenic medication Subjective hx not possible: pt critical Exam/Review of Systems Vital Signs Vitals Vital Signs Date Time Temp Pulse Resp B/P Pulse Ox O2 Delivery O2 Flow Rate FiO2 07/29/16 10:00 93 14 107/63 99 Room Air 07/29/16 08:00 98.9 07/29/16 00:00 2.0 Intake and Output 07/28/16 07/28/16 07/29/16 15:00 23:00 07:00 Intake Total 530 ml 900 ml Output Total 700 ml 200 ml Balance -170 ml 700 ml Exam Constitutional: alert, oriented, well developed Psych: nl mood/affect, no complaints Head: atraumatic, normocephalic Eyes: EOMI, PERRL, nl conjunctiva, nl lids, nl sclera ENMT: nl external ears & nose, nl lips & teeth, nl nasal mucosa & septum Neck: non-tender, supple Respiratory: clear to auscultation, normal air movement Cardiovascular: nl pulses, regular rate and rhythm Gastrointestinal: nl liver, spleen, non-tender, soft Musculoskeletal: nl extremities to inspection, nl gait and stance Extremities: normal pulses Neurological: PATIENT SERVICE COORDINATOR II-XII intact, nl mental status, nl speech, nl strength Skin: nl turgor, No rash or lesions Lymph: nl lymph nodes Results Result Diagram: 07/29/16 1035 07/29/16 0622 Results 24 hrs Laboratory Tests Test 07/28/16 12:50 07/28/16 16:42 07/28/16 17:00 07/28/16 17:35 Hemoglobin A1c Bedside Glucose 281 H 305 H White Blood Count 8.9 # Red Blood Count 1.65 #L Hemoglobin 5.1 #*L Hematocrit 14.7 #L Mean Corpuscular Volume 89.1 Mean Corpuscular Hemoglobin 30.9 Mean Corpuscular Hemoglobin Concent 34.7 Red Cell Distribution Width 13.2 Platelet Count 141 # Mean Platelet Volume 11.3 H Neutrophils % 75.0 Band Neutrophils % 2.0 Lymphocytes % 21.0 Monocytes % 2.0 Nucleated Red Blood Cells % 5.0 H Neutrophils # 6.7 Lymphocytes # 1.9 Monocytes # 0.2 L Platelet Estimate PLT APPEAR ADEQUATE Sodium Level 134 L Potassium Level 3.8 Chloride Level 106 Carbon Dioxide Level 24 Anion Gap 8 Blood Urea Nitrogen 29 H Creatinine 0.67 Glucose Level 247 #H Calcium Level 7.3 L Test 07/28/16 18:30 07/28/16 21:40 07/28/16 23:50 07/29/16 02:31 Bedside Glucose 313 H 382 H 323 H Lactic Acid Level 1.7 Test 07/29/16 04:58 07/29/16 05:55 07/29/16 06:05 07/29/16 06:22 Lab Scanned Report BLOOD TRANSFUSION Iron Level 93 Total Iron Binding Capacity 267 Percent Iron Saturation 35 Prothrombin Time 15.3 H Prothrombin Time Ratio 1.2 INR International Normalized Ratio 1.20 Activated Partial Thromboplast Time 24.6 L White Blood Count 9.3 Red Blood Count 2.16 #L Hemoglobin 6.7 #*L Hematocrit 19.1 #L Mean Corpuscular Volume 88.4 Mean Corpuscular Hemoglobin 31.0 Mean Corpuscular Hemoglobin Concent 35.1 Red Cell Distribution Width 13.3 Platelet Count 121 L Mean Platelet Volume 11.0 H Neutrophils % 66.3 Lymphocytes % 22.1 Monocytes % 8.6 Eosinophils % 0.3 Basophils % 0.1 Nucleated Red Blood Cells % 1.8 H Neutrophils # 6.1 Lymphocytes # 2.1 Monocytes # 0.8 Eosinophils # 0.0 Basophils # 0.0 Nucleated Red Blood Cells # 0.2 H Sodium Level 138 Potassium Level 3.5 Chloride Level 110 Carbon Dioxide Level 24 Anion Gap 8 Blood Urea Nitrogen 24 H Creatinine 0.71 Glucose Level 215 Calcium Level 7.1 L Ferritin 47.4 Lactate Dehydrogenase 343 Vitamin B12 Level 313 Folate 13.9 Thyroid Stimulating Hormone (TSH) 1.210 Test 07/29/16 06:52 07/29/16 08:06 07/29/16 09:33 07/29/16 10:35 Absolute Reticulocyte Count 0.113 H Percent Reticulocyte Count 5.1 H Bedside Glucose 249 H 244 H White Blood Count 9.8 Red Blood Count 2.67 #L Hemoglobin 7.9 L Hematocrit 23.3 #L Mean Corpuscular Volume 87.3 Mean Corpuscular Hemoglobin 29.6 Mean Corpuscular Hemoglobin Concent 33.9 Red Cell Distribution Width 13.4 Platelet Count 109 L Mean Platelet Volume 10.6 H Neutrophils % 65.0 Lymphocytes % 23.0 Monocytes % 8.0 Eosinophils % 0.6 Basophils % 0.2 Nucleated Red Blood Cells % 2.0 H Neutrophils # 6.4 Lymphocytes # 2.3 Monocytes # 0.8 Eosinophils # 0.1 Basophils # 0.0 Nucleated Red Blood Cells # 0.2 H Test 07/29/16 11:16 Bedside Glucose 182 Medications Medications Current Medications Miscellaneous Information 1 ea NOTE XX ; Start 07/28/16 at 03:30 Glucose (Glutose) 15 gm Q15M PRN PO DECREASED GLUCOSE; Start 07/28/16 at 03:30 Glucose (Glutose) 22.5 gm Q15M PRN PO DECREASED GLUCOSE; Start 07/28/16 at 03: 30 Dextrose (D50w Syringe) 25 ml Q15M PRN IV DECREASED GLUCOSE; Start 07/28/16 at 03:30 Dextrose (D50w Syringe) 50 ml Q15M PRN IV DECREASED GLUCOSE; Start 07/28/16 at 03:30 Glucagon (Glucagen) 1 mg Q15M PRN IM DECREASED GLUCOSE; Start 07/28/16 at 03:30 Glucose 15 gm 15 gm Q15M PRN BUCCAL DECREASED GLUCOSE; Start 07/28/16 at 03:30 Sodium Chloride (NS) 1,000 ml @ 125 mls/hr Q8H IV Last administered on t 19:55; Admin Dose 125 MLS/HR; Start 07/28/16 at 19:00 Pantoprazole (Protonix Iv) 40 mg BID@18 IV Last administered on 07/29/16 05 :50; Admin Dose 40 MG; Start 07/29/16 at 06:00 Acetaminophen 650 mg 650 mg Q6H PRN PO PAIN AND OR ELEVATED TEMP Last administered on 07/28/16 23:22; Admin Dose 650 MG; Start 07/28/16 at 23:00 Piperacillin Sod/ Tazobactam Sod (Zosyn 3.375gm/ 100 ml (Pmx)) 100 ml @ 200 mls /hr Q6 IVPB Last administered on 07/29/16 05:50; Admin Dose 200 MLS/HR; Start 07/29/16 at 00:30 Diagnostic Test (Pha) (Accu-Chek) 1 ea Q1H XX ; Start 07/29/16 at 08:00 Dextrose (D50w Syringe) 25 ml Q15M PRN IV Till BS 80 mg/dL or above x2; Start 07/29/16 at 08:00 Dextrose (D50w Syringe) 50 ml Q15M PRN IV Till BS 80 mg/dL or above x2; Start 07/29/16 at 08:00 WIL ESTRADA MD Jul 29, 2016 11:57
[2016-07-29 13:34] LABS: HEMOGLOBIN 5.1 g/dl (14.0-18.0)
--- NOTE | 2016-07-29 14:23 | PN ---
Date/Time of Note Date/Time of Note DATE: 07/29/16 TIME: 14:08 Assessment/Plan VTE Prophylaxis VTE Prophylaxis Intervention: SCD's Lines/Catheters IV Catheter Type (from Nrsg): Peripheral IV Assessment/Plan Assessment/Plan -Hypovolemic versus hemorrhagic shock, continue IV fluids, blood transfusion, ICU care -Possible GI bleed, pending EGD tonight, Dr. Lawrence is following in gastroenterology consultation. -Anemia of blood loss, status post blood transfusion, continue to monitor H&H. -New onset of diabetes, continue insulin drip. -Obesity Further recommendations based on clinical course. End of care discussed with Dr. Chacon. Exam/Review of Systems Vital Signs Vitals Vital Signs Date Time Temp Pulse Resp B/P Pulse Ox O2 Delivery O2 Flow Rate FiO2 07/29/16 12:00 98.3 87 14 86/48 99 Room Air 07/29/16 00:00 2.0 Intake and Output 07/28/16 07/28/16 07/29/16 15:00 23:00 07:00 Intake Total 530 ml 900 ml Output Total 700 ml 200 ml Balance -170 ml 700 ml Exam Constitutional: alert, obese, oriented Neck: supple Respiratory: normal air movement Cardiovascular: nl pulses Gastrointestinal: non-tender, soft Extremities: normal pulses Neurological: RESEARCH DIETITIAN II-XII intact Results Result Diagram: 07/29/16 1035 07/29/16 0622 Results 24 hrs Laboratory Tests Test 07/28/16 16:42 07/28/16 17:00 07/28/16 17:35 07/28/16 18:30 Bedside Glucose 281 H 305 H 313 H White Blood Count 8.9 # Red Blood Count 1.65 #L Hemoglobin 5.1 #*L Hematocrit 14.7 #L Mean Corpuscular Volume 89.1 Mean Corpuscular Hemoglobin 30.9 Mean Corpuscular Hemoglobin Concent 34.7 Red Cell Distribution Width 13.2 Platelet Count 141 # Mean Platelet Volume 11.3 H Neutrophils % 75.0 Band Neutrophils % 2.0 Lymphocytes % 21.0 Monocytes % 2.0 Nucleated Red Blood Cells % 5.0 H Neutrophils # 6.7 Lymphocytes # 1.9 Monocytes # 0.2 L Platelet Estimate PLT APPEAR ADEQUATE Sodium Level 134 L Potassium Level 3.8 Chloride Level 106 Carbon Dioxide Level 24 Anion Gap 8 Blood Urea Nitrogen 29 H Creatinine 0.67 Glucose Level 247 #H Calcium Level 7.3 L Test 07/28/16 21:40 07/28/16 23:50 07/29/16 02:31 07/29/16 04:58 Bedside Glucose 382 H 323 H Lactic Acid Level 1.7 Lab Scanned Report BLOOD TRANSFUSION Test 07/29/16 05:55 07/29/16 06:05 07/29/16 06:22 07/29/16 06:52 Iron Level 93 Total Iron Binding Capacity 267 Percent Iron Saturation 35 Prothrombin Time 15.3 H Prothrombin Time Ratio 1.2 INR International Normalized Ratio 1.20 Activated Partial Thromboplast Time 24.6 L White Blood Count 9.3 Red Blood Count 2.16 #L Hemoglobin 6.7 #*L Hematocrit 19.1 #L Mean Corpuscular Volume 88.4 Mean Corpuscular Hemoglobin 31.0 Mean Corpuscular Hemoglobin Concent 35.1 Red Cell Distribution Width 13.3 Platelet Count 121 L Mean Platelet Volume 11.0 H Neutrophils % 66.3 Lymphocytes % 22.1 Monocytes % 8.6 Eosinophils % 0.3 Basophils % 0.1 Nucleated Red Blood Cells % 1.8 H Neutrophils # 6.1 Lymphocytes # 2.1 Monocytes # 0.8 Eosinophils # 0.0 Basophils # 0.0 Nucleated Red Blood Cells # 0.2 H Sodium Level 138 Potassium Level 3.5 Chloride Level 110 Carbon Dioxide Level 24 Anion Gap 8 Blood Urea Nitrogen 24 H Creatinine 0.71 Glucose Level 215 Calcium Level 7.1 L Ferritin 47.4 Lactate Dehydrogenase 343 Vitamin B12 Level 313 Folate 13.9 Thyroid Stimulating Hormone (TSH) 1.210 Absolute Reticulocyte Count 0.113 H Percent Reticulocyte Count 5.1 H Test 07/29/16 08:06 07/29/16 09:33 07/29/16 10:35 07/29/16 11:16 Bedside Glucose 249 H 244 H 182 White Blood Count 9.8 Red Blood Count 2.67 #L Hemoglobin 7.9 L Hematocrit 23.3 #L Mean Corpuscular Volume 87.3 Mean Corpuscular Hemoglobin 29.6 Mean Corpuscular Hemoglobin Concent 33.9 Red Cell Distribution Width 13.4 Platelet Count 109 L Mean Platelet Volume 10.6 H Neutrophils % 65.0 Lymphocytes % 23.0 Monocytes % 8.0 Eosinophils % 0.6 Basophils % 0.2 Nucleated Red Blood Cells % 2.0 H Neutrophils # 6.4 Lymphocytes # 2.3 Monocytes # 0.8 Eosinophils # 0.1 Basophils # 0.0 Nucleated Red Blood Cells # 0.2 H Test 07/29/16 12:03 07/29/16 13:10 Bedside Glucose 183 188 Medications Medications Current Medications Miscellaneous Information 1 ea NOTE XX ; Start 07/28/16 at 03:30 Glucose (Glutose) 15 gm Q15M PRN PO DECREASED GLUCOSE; Start 07/28/16 at 03:30 Glucose (Glutose) 22.5 gm Q15M PRN PO DECREASED GLUCOSE; Start 07/28/16 at 03: 30 Dextrose (D50w Syringe) 25 ml Q15M PRN IV DECREASED GLUCOSE; Start 07/28/16 at 03:30 Dextrose (D50w Syringe) 50 ml Q15M PRN IV DECREASED GLUCOSE; Start 07/28/16 at 03:30 Glucagon (Glucagen) 1 mg Q15M PRN IM DECREASED GLUCOSE; Start 07/28/16 at 03:30 Glucose 15 gm 15 gm Q15M PRN BUCCAL DECREASED GLUCOSE; Start 07/28/16 at 03:30 Sodium Chloride (NS) 1,000 ml @ 125 mls/hr Q8H IV Last administered on 19:55; Admin Dose 125 MLS/HR; Start 07/28/16 at 19:00 Pantoprazole (Protonix Iv) 40 mg BID@06,18 IV Last administered on 07/29/16 05 :50; Admin Dose 40 MG; Start 07/29/16 at 06:00 Acetaminophen 650 mg 650 mg Q6H PRN PO PAIN AND OR ELEVATED TEMP Last administered on 07/28/16 23:22; Admin Dose 650 MG; Start 07/28/16 at 23:00 Piperacillin Sod/ Tazobactam Sod (Zosyn 3.375gm/ 100 ml (Pmx)) 100 ml @ 200 mls /hr Q6 IVPB Last administered on 07/29/16 12:40; Admin Dose 200 MLS/HR; Start 07/29/16 at 00:30 Diagnostic Test (Pha) (Accu-Chek) 1 ea Q1H XX ; Start 07/29/16 at 08:00 Dextrose (D50w Syringe) 25 ml Q15M PRN IV Till BS 80 mg/dL or above x2; Start 07/29/16 at 08:00 Dextrose (D50w Syringe) 50 ml Q15M PRN IV Till BS 80 mg/dL or above x2; Start 07/29/16 at 08:00 EDUIN DC Jul 29, 2016 14:18
[2016-07-29] MEDS ORDERED: PROPOFOL 20 ML ONE (17:40)
[2016-07-29] MEDS ORDERED: LIDOCAINE 2% (SDV) 5 ML INJ ONE (17:40)
[2016-07-29] MEDS ORDERED: MIDAZOLAM 1 MG/ML 2 ML INJ ONE (17:41)
[2016-07-29] MEDS ORDERED: EPHEDrine SULFATE 50 MG/5 ML SYG ONE (18:28)
[2016-07-29] MEDS: D5-NS + KCL 20 MEQ 1,000 ML IV SCH (18:38)
[2016-07-29 19:56] LABS: HEMOGLOBIN 9.9 g/dl (14.0-18.0)
[2016-07-30] VITALS (29 sets, daily range): BP systolic 76–131; BP diastolic 42–78; PULSE 66–94; RESP 10–20
[2016-07-30] MEDS: PIPER-TAZO 3.375 GM IV (PMX) 100 ML IVPB SCH ×4 (00:13→17:32)
[2016-07-30] MEDS: ACCU-CHEK XX SCH ×12 (01:00→11:00)
[2016-07-30] MEDS: D5-NS + KCL 20 MEQ 1,000 ML IV SCH (05:42)
[2016-07-30] MEDS: PANTOPRAZOLE 40 MG INJ IV SCH ×2 (05:42→17:32)
[2016-07-30] MEDS: INSULIN HUMAN REGULAR 100 UNIT in SOD CHLORIDE 0.9% 99 ML IV SCH (05:51)
[2016-07-30 06:02] LABS: ADD SCAN DIFF NO
[2016-07-30 06:24] LABS: BASOPHILS % 0.3 % (0.0-2.0); EOSINOPHILS # 0.1 10^3/ul (0.0-0.5); EOSINOPHILS % 0.9 % (0.0-7.0); HEMATOCRIT 28.4 % (42.0-52.0); HEMOGLOBIN 9.6 g/dl (14.0-18.0); LYMPHOCYTES # 1.9 10^3/ul (0.8-2.9); LYMPHOCYTES % 24.6 % (15.0-51.0); MEAN CORPUSCULAR HEMOGLOBIN 29.8 pg (29.0-33.0); MEAN CORPUSCULAR HGB CONC 33.8 g/dl (32.0-37.0); MEAN CORPUSCULAR VOLUME 88.2 fl (82.0-101.0); MEAN PLATELET VOLUME 10.9 fl (7.4-10.4); MONOCYTE # 0.5 10^3/ul (0.3-0.9); MONOCYTES % 6.9 % (0.0-11.0); NEUTROPHIL # 4.9 10^3/ul (1.6-7.5); NEUTROPHILS % 62.4 % (39.0-77.0); NUCLEATED RED BLOOD CELLS # 0.2 10^3/ul (0.0-0.0); NUCLEATED RED BLOOD CELLS% 2.9 /100WBC (0.0-0.0); PLATELET COUNT 105 10^3/UL (140-415); RED BLOOD COUNT 3.22 10^6/ul (4.70-6.10); RED CELL DISTRIBUTION WIDTH 14.8 % (11.5-14.5); WHITE BLOOD COUNT 7.8 10^3/ul (4.8-10.8)
[2016-07-30 06:56] LABS: ALBUMIN 2.9 g/dl (3.3-4.9); ALBUMIN/GLOBULIN RATIO 1.61; BILIRUBIN,INDIRECT 0.6 mg/dl (0-1.1); BILIRUBIN,TOTAL 0.6 mg/dl (0.2-1.3); CALCIUM 7.4 mg/dl (8.4-10.2); CREATININE 0.8 mg/dl (0.61-1.24); POTASSIUM 3.7 mmol/L (3.5-5.1); TOTAL PROTEIN 4.7 g/dl (6.1-8.1)
--- NOTE | 2016-07-30 07:06 | GILP ---
DATE OF PROCEDURE: PROCEDURE PERFORMED: EGD with biopsy. INDICATION: A 41-year-old male who presented to the intensive care unit with a hemoglobin of 5. He required 3 units of packed cells RBC transfusion. The patient has a history of abdominal pain and some nausea and vomiting, and there was a question of passing black stool. He is not a very good hi storian. INFORMED CONSENT: The risks of the procedure, related and unrelated complications, anesthetic risks and alternatives were discussed and informed consent was obtained. DESCRIPTION OF PROCEDURE: The patient was brought to the GI lab, sedated by Dr. Pickard. After optimu m sedation, the scope was passed with much ease into the esophagus, which was grossly within normal limits. Z line was normal. Stomach mucosa revealed gastritis. Multiple petechial spots were seen throughout the fundus and the proximal part of the body of the stomach. Five small ulcers were iden tified in the antrum, the greatest size for each of them was 3 to 4 mm. The duodenal mucosa revealed an active duodenal ulcer with a crater size of 1 cm, and there was also another ulcer with a crater size of a half a cm. The second part was within normal limits. No sentinel clot, no red dot, or al tered blood seen. Retroflexion confirmed gastritis. No varicose vein identified either in the stom ach or in the esophagus, and the Z line was normal. IMPRESSION: 1. Normal esophagus. 2. Normal Z-line at 35. 3. Severe gastritis. 4. Multiple small gastric ulcers. 5. Two duodenal ulcers, with a crater size of 1 cm. 6. No evidence of active bleeding or altered blood. PLAN: Continue PPI. Will start the patient on a regular diet. Monitor H and H less frequently. Dictated By: WIL STALEY/NTS Conf#: [id number] DID#: [id number] CC: NEREYDA CISSE MD;*End*
[2016-07-30] MEDS: INSULIN ASPART [NOVOLOG] 3 ML PEN SC SCH ×4 (07:35→21:00)
--- NOTE | 2016-07-30 15:25 | CONS ---
Date/Time of Note Date/Time of Note DATE: 07/30/16 TIME: 15:12 Assessment/Plan Assessment/Plan Problems: (1) Diabetes mellitus, new onset Status: Acute Comment: Almost certainly T2DM and likely has had for some time. Will start on oral hypoglycemics for 2 reasons. First of all despite high A1c, sulfonylureas in sulfonylurea naive patients tend to be highly effective agents in lowering blood glucose. Secondly, patient is unlikely to leave the hospital with insulin and it would be a good idea to see if oral hypoglycemics would be effective for him. Will start glimepiride 2 mg bid and metformin 500 mg bid. Will also start empagliflozin 10 mg qam. If pt. w/ hypoglycemia will wean down on glimepiride. Will follow with you. Consultation Date/Type/Reason Admit Date/Time Jul 28, 2016 at 00:24 Date of Consultation: Jul 30, 2016 Type of Consultation: Endocrinology Reason for Consultation New onset T2DM Referring Provider: LISETTE MELENDEZ of Present Illness 41 y/o H M w/o sig. PMH in [facility] until 6 days ago when he developed polydipsia and a color change of his hands. Over the next several days he noticed bilateral chest pains radiating to his epigastrium, nausea, headaches, dizziness , polyuria, nocturia, blurred vision. 3 days ago was a latter day and telling somebody about his symptoms and was told he needed to see a doctor. Came to [facility] and in ER was found to have BG 441 mg/dL w/o DKA and also Hgb 8.4 which decreased to 5.1 after hydration. Pt. admitted for these issues. Has been evaluated by GI and although no Fe Def, EGD showed severe gastritis w/ small ulcers. Pt. now on PPI. Pt. was lightheaded and orthostatic on telemetry. Transferred to ICU and placed on insulin drip. Now w/ good glycemic control. Eyes: no complaints Respiratory: no complaints Cardiovascular: no complaints Gastrointestinal: no complaints Genitourinary: no complaints Musculoskeletal: no complaints Skin: no complaints Neurologic: no complaints Psychological: nl mood/affect, no complaints Past Medical History Medical History: no pertinent history Past Surgical History Past Surgical Hx: no surgical history Family History Significant Family History: cancer (uncle), diabetes (mother) Social History b. [facility]ly [facility] but raised in [place], returned to [facility] 19 y. 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, and has step-child, blood child living in [place] Alcohol Use: sober (used to drink 12-pack plus liquor on weekends) Smoking Status: Former smoker (quit 3 years ago, previously 1-4 cigarettes per day for 10 years) Drug Use: cocaine (in past) Exam/Review of Systems Vital Signs Vitals VS - Last 72 Hours, by Label Date Time Temp Pulse Resp B/P Pulse Ox O2 Delivery O2 Flow Rate FiO2 07/30/16 15:00 75 14 108/73 100 Room Air 07/30/16 14:30 78 16 108/73 100 Room Air 07/30/16 14:00 67 10 100/46 99 Room Air 07/30/16 13:30 77 18 90/45 98 Room Air 07/30/16 13:00 76 20 101/55 99 Room Air 07/30/16 12:00 98.2 74 12 93/56 100 Room Air 07/30/16 12:00 75 07/30/16 11:00 73 14 76/43 97 Room Air 07/30/16 10:30 79 16 82/42 98 Room Air 07/30/16 10:00 66 10 95/65 100 Room Air 07/30/16 09:30 94 15 103/65 100 Room Air 07/30/16 09:00 81 15 82/49 97 Room Air 07/30/16 08:30 75 11 90/62 97 Room Air 07/30/16 08:00 98.3 67 13 92/47 98 Room Air 07/30/16 08:00 71 07/30/16 07:30 73 14 87/58 96 Room Air 07/30/16 04:00 76 07/30/16 03:00 71 15 98/65 99 07/30/16 02:00 91 19 91/53 98 07/30/16 01:00 76 14 93/52 97 07/30/16 00:00 98.7 81 17 102/60 98 07/30/16 00:00 82 07/29/16 23:00 85 17 92/47 98 07/29/16 22:00 85 14 90/55 98 07/29/16 21:00 81 16 108/73 99 07/29/16 20:00 98.5 88 15 127/103 99 07/29/16 20:00 91 07/29/16 19:00 87 20 98 07/29/16 18:24 90 18 100/55 99 07/29/16 18:18 Non Rebreather 10 07/29/16 17:11 98.7 83 17 93/54 96 07/29/16 17:08 87/54 07/29/16 16:15 80 15 93/48 100 07/29/16 16:00 98.7 76 17 119/62 100 Room Air 07/29/16 16:00 75 07/29/16 15:45 81 19 102/53 98 07/29/16 15:30 77 13 95/61 100 07/29/16 15:15 78 15 97/60 100 07/29/16 15:00 79 16 92/65 99 Room Air 07/29/16 14:45 76 16 83/62 98 07/29/16 14:30 76 13 92/54 98 07/29/16 14:15 79 13 97/55 97 07/29/16 14:00 79 19 95/54 100 Room Air 07/29/16 13:00 85 15 94/56 100 07/29/16 12:00 98.3 87 14 86/48 99 Room Air 07/29/16 12:00 87 07/29/16 11:00 92 16 95/50 97 Room Air 07/29/16 10:00 93 14 107/63 99 Room Air 07/29/16 09:00 93 17 101/61 99 Room Air 07/29/16 08:00 91 07/29/16 08:00 98.9 93 14 96/49 98 Room Air 07/29/16 07:00 94 17 94/53 98 Room Air 07/29/16 06:00 85 17 90/61 99 07/29/16 05:00 101 15 94/48 99 07/29/16 04:00 98.7 105 115/46 100 07/29/16 04:00 97 07/29/16 03:00 100 89/54 100 07/29/16 02:00 99 121/63 100 07/29/16 01:00 118 114/61 98 07/29/16 00:00 Nasal Cannula 2.0 07/29/16 00:00 99.5 126 13 107/65 100 07/29/16 00:00 123 07/28/16 23:00 141 121/65 98 07/28/16 22:00 102.2 138 107/74 97 07/28/16 21:00 140 21 100/55 97 07/28/16 20:00 101.0 137 12 100 07/28/16 20:00 136 07/28/16 20:00 Nasal Cannula 2.0 07/28/16 19:28 125 07/28/16 08:00 97.9 86 19 97/54 99 07/28/16 02:38 97.8 92 18 109/58 98 07/28/16 02:14 96/46 07/28/16 02:09 94 13 88/51 99 Room Air 07/28/16 00:27 107 21 93/57 98 07/27/16 23:07 109 16 105/68 100 Room Air 07/27/16 20:44 99.2 144 20 110/69 98 Vital Signs Date Time Temp Pulse Resp B/P Pulse Ox O2 Delivery O2 Flow Rate FiO2 07/30/16 15:00 75 14 108/73 100 Room Air 07/30/16 12:00 98.2 07/29/16 18:18 10 Intake and Output 07/29/16 07/29/16 07/30/16 15:00 23:00 07:00 Intake Total 960 ml 828 ml 636 ml Output Total 1100 ml 600 ml 1950 ml Balance -140 ml 228 ml -1314 ml Exam Constitutional: alert, obese, oriented Psych: nl mood/affect, no complaints Eyes: EOMI, PERRL, nl conjunctiva, nl lids, nl sclera ENMT: mucosa pink and moist, nl external ears & nose Neck: non-tender, supple, No bruits, No masses, No thyromegaly Respiratory: clear to auscultation, normal air movement Cardiovascular: nl pulses, regular rate and rhythm, No edema, No murmurs/extra sounds, No rub Gastrointestinal: bowel sounds, nl liver, spleen, non-tender, soft, No mass, No rebound or guarding Musculoskeletal: nl extremities to inspection Extremities: normal pulses, No clubbing, No cyanosis, No edema 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, nl mental status, nl speech, nl strength Additional Comments Bedside Glucose - 72 Hours Test 07/27/16 22:09 07/28/16 00:57 07/28/16 01:53 07/28/16 03:09 Bedside Glucose 455mg/dL (70-220) *H 348mg/dL (70-220) H 330mg/dL (70-220) H 312mg/dL (70-220) H Test 07/28/16 08:10 07/28/16 11:49 07/28/16 16:42 07/28/16 17:35 Bedside Glucose 268mg/dL (70-220) H 283mg/dL (70-220) H 281mg/dL (70-220) H 305mg/dL (70-220) H Test 07/28/16 18:30 07/28/16 21:40 07/29/16 02:31 07/29/16 08:06 Bedside Glucose 313mg/dL (70-220) H 382mg/dL (70-220) H 323mg/dL (70-220) H 249mg/dL (70-220) H Test 07/29/16 09:33 07/29/16 11:16 07/29/16 12:03 07/29/16 13:10 Bedside Glucose 244mg/dL (70-220) H 182mg/dL (70-220) 183mg/dL (70-220) 188mg/dL (70-220) Test 07/29/16 14:05 07/29/16 14:55 07/29/16 16:09 07/29/16 17:49 Bedside Glucose 136mg/dL (70-220) 152mg/dL (70-220) 116mg/dL (70-220) 140mg/dL (70-220) Test 07/29/16 20:32 07/29/16 21:57 07/29/16 23:49 07/30/16 02:09 Bedside Glucose 165mg/dL (70-220) 188mg/dL (70-220) 134mg/dL (70-220) 126mg/dL (70-220) Test 07/30/16 04:11 07/30/16 05:42 07/30/16 08:07 07/30/16 10:30 Bedside Glucose 118mg/dL (70-220) 104mg/dL (70-220) 142mg/dL (70-220) 188mg/dL (70-220) Test 07/30/16 11:34 07/30/16 14:29 Bedside Glucose 173mg/dL (70-220) 127mg/dL (70-220) Results Result Diagram: 07/30/16 0450 07/30/16 0450 Results 24 hrs Laboratory Tests Test 07/29/16 16:09 07/29/16 17:49 07/29/16 19:40 07/29/16 20:32 Bedside Glucose 116 140 165 Hemoglobin 9.9 #L Hematocrit 28.0 #L Test 07/29/16 21:57 07/29/16 23:49 07/30/16 02:09 07/30/16 04:11 Bedside Glucose 188 134 126 118 Test 07/30/16 04:50 07/30/16 05:42 07/30/16 08:07 07/30/16 10:30 White Blood Count 7.8 # Red Blood Count 3.22 #L Hemoglobin 9.6 L Hematocrit 28.4 L Mean Corpuscular Volume 88.2 Mean Corpuscular Hemoglobin 29.8 Mean Corpuscular Hemoglobin Concent 33.8 Red Cell Distribution Width 14.8 H Platelet Count 105 L Mean Platelet Volume 10.9 H Neutrophils % 62.4 Lymphocytes % 24.6 Monocytes % 6.9 Eosinophils % 0.9 Basophils % 0.3 Nucleated Red Blood Cells % 2.9 H Neutrophils # 4.9 Lymphocytes # 1.9 Monocytes # 0.5 Eosinophils # 0.1 Basophils # 0.0 Nucleated Red Blood Cells # 0.2 H Sodium Level 139 Potassium Level 3.7 Chloride Level 110 Carbon Dioxide Level 26 Anion Gap 7 L Blood Urea Nitrogen 13 # Creatinine 0.80 Glucose Level 104 # Hemoglobin A1c 6.9 H Calcium Level 7.4 L Total Bilirubin 0.6 Direct Bilirubin 0.00 Indirect Bilirubin 0.6 Aspartate Amino Transf (AST/SGOT) 35 Alanine Aminotransferase (ALT/SGPT) 51 Alkaline Phosphatase 29 L Total Protein 4.7 L Albumin 2.9 L Globulin 1.80 Albumin/Globulin Ratio 1.61 Bedside Glucose 104 142 188 Test 07/30/16 11:34 07/30/16 14:29 Bedside Glucose 173 127 Medications Medications Current Medications Miscellaneous Information 1 ea NOTE XX ; Start 07/28/16 at 03:30 Glucose (Glutose) 15 gm Q15M PRN PO DECREASED GLUCOSE; Start 07/28/16 at 03:30 Glucose (Glutose) 22.5 gm Q15M PRN PO DECREASED GLUCOSE; Start 07/28/16 at 03: 30 Dextrose (D50w Syringe) 25 ml Q15M PRN IV DECREASED GLUCOSE; Start 07/28/16 at 03:30 Dextrose (D50w Syringe) 50 ml Q15M PRN IV DECREASED GLUCOSE; Start 07/28/16 at 03:30 Glucagon (Glucagen) 1 mg Q15M PRN IM DECREASED GLUCOSE; Start 07/28/16 at 03:30 Glucose (Glutose) 15 gm Q15M PRN BUCCAL DECREASED GLUCOSE; Start 07/28/16 at 03 :30 Pantoprazole (Protonix Iv) 40 mg BID@06,18 IV Last administered on 07/30/16 05 :42; Admin Dose 40 MG; Start 07/29/16 at 06:00 Acetaminophen 650 mg 650 mg Q6H PRN PO PAIN AND OR ELEVATED TEMP Last administered on 07/28/16 23:22; Admin Dose 650 MG; Start 07/28/16 at 23:00 Piperacillin Sod/ Tazobactam Sod (Zosyn 3.375gm/ 100 ml (Pmx)) 100 ml @ 200 mls /hr Q6 IVPB Last administered on 07/30/16 14:58; Admin Dose 200 MLS/HR; Start 07/29/16 at 00:30 Dextrose (D50w Syringe) 25 ml Q15M PRN IV Till BS 80 mg/dL or above x2; Start 07/29/16 at 08:00 Dextrose 50 ml 50 ml Q15M PRN IV Till BS 80 mg/dL or above x2; Start 07/29/16 at 08:00 Potassium Chloride/Dextrose/ Sod Cl (D5-NS + KCl 20 Meq) 1,000 ml @ 70 mls/hr [id number] IV Last administered on 07/30/16 05:42; Admin Dose 70 MLS/HR; Start at 14:30; Stop 07/30/16 at 20:00 Empaglifozin (Jardiance) 10 mg DAILY@08 PO ; Start 07/31/16 at 08:00 Diagnostic Test (Pha) (Accu-Chek) 1 ea 02 XX ; Start 07/31/16 at 02:00 KEVIN BRYAN MD Jul 30, 2016 15:25
[2016-07-30] MEDS: GLIMEPIRIDE 2 MG TAB PO SCH (17:31)
[2016-07-30] MEDS: metFORMIN (XR) 500 MG TAB PO SCH (17:38)
[2016-07-30] MEDS: SOD CHLORIDE 0.9% 1,000 ML IV SCH ×2 (19:00→19:07)
--- NOTE | 2016-07-30 20:45 | PN ---
Date/Time of Note Date/Time of Note DATE: 07/30/16 TIME: 18:15 Assessment/Plan Lines/Catheters IV Catheter Type (from Nrsg): Peripheral IV Assessment/Plan Assessment/Plan -Hypovolemic versus hemorrhagic shock, continue IV fluids, blood transfusion, ICU care -Possible GI bleed, pending EGD tonight, Dr. Lawrence is following in gastroenterology consultation. -Anemia of blood loss, status post blood transfusion, continue to monitor H&H. - per GI -New onset of diabetes, continue insulin drip. - PER endocrinology -Obesity Further recommendations based on clinical course. End of care discussed with Dr. Chacon. Subjective 24 Hr Interval Summary Free Text/Dictation Patient is cleared by endo for MS , AFEBRILE. no new issues reported, dw staff. Respiratory: no complaints Cardiovascular: no complaints Gastrointestinal: no complaints Genitourinary: no complaints Musculoskeletal: no complaints Skin: no complaints Exam/Review of Systems Vital Signs Vitals Vital Signs Date Time Temp Pulse Resp B/P Pulse Ox O2 Delivery O2 Flow Rate FiO2 07/30/16 16:00 72 07/30/16 15:00 14 108/73 100 Room Air 07/30/16 12:00 98.2 07/29/16 18:18 10 Intake and Output 07/29/16 07/29/16 07/30/16 15:00 23:00 07:00 Intake Total 960 ml 828 ml 636 ml Output Total 1100 ml 600 ml 1950 ml Balance -140 ml 228 ml -1314 ml Exam Constitutional: alert, oriented, well developed Psych: nl mood/affect ENMT: nl external ears & nose Respiratory: clear to auscultation Cardiovascular: nl pulses Gastrointestinal: non-tender, soft Results Result Diagram: 07/30/16 0450 07/30/16 0450 Results 24 hrs Laboratory Tests Test 07/29/16 19:40 07/29/16 20:32 07/29/16 21:57 07/29/16 23:49 Hemoglobin 9.9 #L Hematocrit 28.0 #L Bedside Glucose 165 188 134 Test 07/30/16 02:09 07/30/16 04:11 07/30/16 04:50 07/30/16 05:42 Bedside Glucose 126 118 104 White Blood Count 7.8 # Red Blood Count 3.22 #L Hemoglobin 9.6 L Hematocrit 28.4 L Mean Corpuscular Volume 88.2 Mean Corpuscular Hemoglobin 29.8 Mean Corpuscular Hemoglobin Concent 33.8 Red Cell Distribution Width 14.8 H Platelet Count 105 L Mean Platelet Volume 10.9 H Neutrophils % 62.4 Lymphocytes % 24.6 Monocytes % 6.9 Eosinophils % 0.9 Basophils % 0.3 Nucleated Red Blood Cells % 2.9 H Neutrophils # 4.9 Lymphocytes # 1.9 Monocytes # 0.5 Eosinophils # 0.1 Basophils # 0.0 Nucleated Red Blood Cells # 0.2 H Sodium Level 139 Potassium Level 3.7 Chloride Level 110 Carbon Dioxide Level 26 Anion Gap 7 L Blood Urea Nitrogen 13 # Creatinine 0.80 Glucose Level 104 # Hemoglobin A1c 6.9 H Calcium Level 7.4 L Total Bilirubin 0.6 Direct Bilirubin 0.00 Indirect Bilirubin 0.6 Aspartate Amino Transf (AST/SGOT) 35 Alanine Aminotransferase (ALT/SGPT) 51 Alkaline Phosphatase 29 L Total Protein 4.7 L Albumin 2.9 L Globulin 1.80 Albumin/Globulin Ratio 1.61 Test 07/30/16 08:07 07/30/16 10:30 07/30/16 11:34 07/30/16 14:29 Bedside Glucose 142 188 173 127 Medications Medications Current Medications Miscellaneous Information 1 ea NOTE XX ; Start 07/28/16 at 03:30 Glucose (Glutose) 15 gm Q15M PRN PO DECREASED GLUCOSE; Start 07/28/16 at 03:30 Glucose (Glutose) 22.5 gm Q15M PRN PO DECREASED GLUCOSE; Start 07/28/16 at 03: 30 Dextrose (D50w Syringe) 25 ml Q15M PRN IV DECREASED GLUCOSE; Start 07/28/16 at 03:30 Dextrose (D50w Syringe) 50 ml Q15M PRN IV DECREASED GLUCOSE; Start 07/28/16 at 03:30 Glucagon (Glucagen) 1 mg Q15M PRN IM DECREASED GLUCOSE; Start 07/28/16 at 03:30 Glucose (Glutose) 15 gm Q15M PRN BUCCAL DECREASED GLUCOSE; Start 07/28/16 at 03 :30 Pantoprazole (Protonix Iv) 40 mg BID@06,18 IV Last administered on 07/30/16t 17 :32; Admin Dose 40 MG; Start 07/29/16 at 06:00 Acetaminophen 650 mg 650 mg Q6H PRN PO PAIN AND OR ELEVATED TEMP Last administered on 07/28/16 23:22; Admin Dose 650 MG; Start 07/28/16 at 23:00 Piperacillin Sod/ Tazobactam Sod (Zosyn 3.375gm/ 100 ml (Pmx)) 100 ml @ 200 mls /hr Q6 IVPB Last administered on 07/30/16 17:32; Admin Dose 200 MLS/HR; Start 07/29/16 at 00:30 Dextrose (D50w Syringe) 25 ml Q15M PRN IV Till BS 80 mg/dL or above x2; Start 07/29/16 at 08:00 Dextrose (D50w Syringe) 50 ml Q15M PRN IV Till BS 80 mg/dL or above x2; Start 07/29/16 at 08:00 Empaglifozin (Jardiance) 10 mg DAILY@08 PO ; Start 07/31/16 at 08:00 Diagnostic Test (Pha) 1 ea 1 ea 02 XX ; Start 07/31/16 at 02:00 Sodium Chloride (NS) 1,000 ml @ 200 mls/hr Q5H IV ; Start 07/30/16 at 20:00 LISETTE MELENDEZ Jul 30, 2016 18:24
[2016-07-31] MEDS: SOD CHLORIDE 0.9% 1,000 ML IV SCH ×3 (01:05→16:06)
[2016-07-31] MEDS: PIPER-TAZO 3.375 GM IV (PMX) 100 ML IVPB SCH ×4 (01:05→17:30)
[2016-07-31] MEDS: ACCU-CHEK XX SCH (02:00)
[2016-07-31] MEDS: PANTOPRAZOLE 40 MG INJ IV SCH ×2 (05:18→17:30)
[2016-07-31] MEDS: EMPAGLIFLOZIN 10 MG TABLET PO SCH (08:02)
[2016-07-31] MEDS: GLIMEPIRIDE 2 MG TAB PO SCH ×2 (08:02→17:29)
[2016-07-31] MEDS: INSULIN ASPART [NOVOLOG] 3 ML PEN SC SCH ×4 (08:03→20:33)
[2016-07-31 08:30] VITALS: BP 97/63; PULSE 76; RESP 18
[2016-07-31] MEDS: metFORMIN (XR) 500 MG TAB PO SCH ×2 (08:37→17:29)
--- NOTE | 2016-07-31 11:25 | CONS ---
Date/Time of Note Date/Time of Note DATE: 07/31/16 TIME: 11:22 Assessment/Plan Assessment/Plan Problems: (1) Diabetes mellitus, new onset Status: Acute Comment: Glucose in perfect control off insulin drip w/o sq insulin as well. Only on oral hypoglycemics. Will monitor for level of control on these doses and if getting good control w/o hypoglycemia, pt. can be d/c'ed on these doses in next 24 hours. Consultation Date/Type/Reason Admit Date/Time Jul 28, 2016 at 00:24 Initial Consult Date 07/30/16 Type of Consultation: Endocrinology Reason for Consultation new onset T2DM Referring Provider: LISETTE MELENDEZ 24 HR Interval Summary Constitutional: improved, no complaints Detailed Summary Respiratory: no complaints Cardiovascular: no complaints Gastrointestinal: no complaints Genitourinary: no complaints Musculoskeletal: no complaints Neurologic: no complaints Exam/Review of Systems Vital Signs Vitals VS - Last 72 Hours, by Label Date Time Temp Pulse Resp B/P Pulse Ox O2 Delivery O2 Flow Rate FiO2 07/31/16 08:30 97.6 76 18 97/63 97 Room Air 07/30/16 22:00 98.5 84 18 131/78 98 07/30/16 21:00 80 11 110/75 98 Room Air 07/30/16 20:00 98.8 72 16 115/71 100 Room Air 07/30/16 19:00 74 17 95/52 100 Room Air 07/30/16 18:30 80 14 106/76 98 Room Air 07/30/16 17:30 91 19 112/78 98 Room Air 07/30/16 17:00 74 18 101/63 100 Room Air 07/30/16 16:30 70 10 106/66 100 Room Air 07/30/16 16:00 98.4 76 15 104/68 100 Room Air 07/30/16 16:00 72 07/30/16 15:30 70 18 106/61 99 Room Air 07/30/16 15:00 75 14 108/73 100 Room Air 07/30/16 14:30 78 16 108/73 100 Room Air 07/30/16 14:00 67 10 100/46 99 Room Air 07/30/16 13:30 77 18 90/45 98 Room Air 07/30/16 13:00 76 20 101/55 99 Room Air 07/30/16 12:00 98.2 74 12 93/56 100 Room Air 07/30/16 12:00 75 07/30/16 11:00 73 14 76/43 97 Room Air 07/30/16 10:30 79 16 82/42 98 Room Air 07/30/16 10:00 66 10 95/65 100 Room Air 07/30/16 09:30 94 15 103/65 100 Room Air 07/30/16 09:00 81 15 82/49 97 Room Air 07/30/16 08:30 75 11 90/62 97 Room Air 07/30/16 08:00 98.3 67 13 92/47 98 Room Air 07/30/16 08:00 71 07/30/16 07:30 73 14 87/58 96 Room Air 07/30/16 04:00 76 07/30/16 03:00 71 15 98/65 99 07/30/16 02:00 91 19 91/53 98 07/30/16 01:00 76 14 93/52 97 07/30/16 00:00 98.7 81 17 102/60 98 07/30/16 00:00 82 07/29/16 23:00 85 17 92/47 98 07/29/16 22:00 85 14 90/55 98 07/29/16 21:00 81 16 108/73 99 07/29/16 20:00 98.5 88 15 127/103 99 07/29/16 20:00 91 07/29/16 19:00 87 20 98 07/29/16 18:24 90 18 100/55 99 07/29/16 18:18 Non Rebreather 10 07/29/16 17:11 98.7 83 17 93/54 96 07/29/16 17:08 87/54 07/29/16 16:15 80 15 93/48 100 07/29/16 16:00 98.7 76 17 119/62 100 Room Air 07/29/16 16:00 75 07/29/16 15:45 81 19 102/53 98 07/29/16 15:30 77 13 95/61 100 07/29/16 15:15 78 15 97/60 100 07/29/16 15:00 79 16 92/65 99 Room Air 07/29/16 14:45 76 16 83/62 98 07/29/16 14:30 76 13 92/54 98 07/29/16 14:15 79 13 97/55 97 07/29/16 14:00 79 19 95/54 100 Room Air 07/29/16 13:00 85 15 94/56 100 07/29/16 12:00 98.3 87 14 86/48 99 Room Air 07/29/16 12:00 87 07/29/16 11:00 92 16 95/50 97 Room Air 07/29/16 10:00 93 14 107/63 99 Room Air 07/29/16 09:00 93 17 101/61 99 Room Air 07/29/16 08:00 91 07/29/16 08:00 98.9 93 14 96/49 98 Room Air 07/29/16 07:00 94 17 94/53 98 Room Air 07/29/16 06:00 85 17 90/61 99 07/29/16 05:00 101 15 94/48 99 07/29/16 04:00 98.7 105 115/46 100 07/29/16 04:00 97 07/29/16 03:00 100 89/54 100 07/29/16 02:00 99 121/63 100 07/29/16 01:00 118 114/61 98 07/29/16 00:00 Nasal Cannula 2.0 07/29/16 00:00 99.5 126 13 107/65 100 07/29/16 00:00 123 07/28/16 23:00 141 121/65 98 07/28/16 22:00 102.2 138 107/74 97 07/28/16 21:00 140 21 100/55 97 07/28/16 20:00 101.0 137 12 100 07/28/16 20:00 136 07/28/16 20:00 Nasal Cannula 2.0 07/28/16 19:28 125 Vital Signs Date Time Temp Pulse Resp B/P Pulse Ox O2 Delivery O2 Flow Rate FiO2 07/31/16 08:30 97.6 76 18 97/63 97 Room Air 07/29/16 18:18 10 Intake and Output 07/30/16 07/30/16 07/31/16 15:00 23:00 07:00 Intake Total 641 ml 1100 ml 1990 ml Output Total 1200 ml 1150 ml 500 ml Balance -559 ml -50 ml 1490 ml Exam Constitutional: alert, obese, oriented Psych: nl mood/affect, no complaints Respiratory: clear to auscultation, normal air movement Cardiovascular: nl pulses, regular rate and rhythm, No edema, No murmurs/extra sounds, No rub Gastrointestinal: bowel sounds, nl liver, spleen, non-tender, soft, No mass, No rebound or guarding Musculoskeletal: nl extremities to inspection Extremities: normal pulses, No clubbing, No cyanosis, No edema 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, nl mental status, nl speech, nl strength Additional Comments Bedside Glucose - 72 Hours Test 07/28/16 11:49 07/28/16 16:42 07/28/16 17:35 07/28/16 18:30 Bedside Glucose 283mg/dL (70-220) H 281mg/dL (70-220) H 305mg/dL (70-220) H 313mg/dL (70-220) H Test 07/28/16 21:40 07/29/16 02:31 07/29/16 08:06 07/29/16 09:33 Bedside Glucose 382mg/dL (70-220) H 323mg/dL (70-220) H 249mg/dL (70-220) H 244mg/dL (70-220) H Test 07/29/16 11:16 07/29/16 12:03 07/29/16 13:10 07/29/16 14:05 Bedside Glucose 182mg/dL (70-220) 183mg/dL (70-220) 188mg/dL (70-220) 136mg/dL (70-220) Test 07/29/16 14:55 07/29/16 16:09 07/29/16 17:49 07/29/16 20:32 Bedside Glucose 152mg/dL (70-220) 116mg/dL (70-220) 140mg/dL (70-220) 165mg/dL (70-220) Test 07/29/16 21:57 07/29/16 23:49 07/30/16 02:09 07/30/16 04:11 Bedside Glucose 188mg/dL (70-220) 134mg/dL (70-220) 126mg/dL (70-220) 118mg/dL (70-220) Test 07/30/16 05:42 07/30/16 08:07 07/30/16 10:30 07/30/16 11:34 Bedside Glucose 104mg/dL (70-220) 142mg/dL (70-220) 188mg/dL (70-220) 173mg/dL (70-220) Test 07/30/16 14:29 07/30/16 21:26 07/31/16 07:49 Bedside Glucose 127mg/dL (70-220) 147mg/dL (70-220) 134mg/dL (70-220) Results Result Diagram: 07/30/16 0450 07/30/16 045 Results 24 hrs Laboratory Tests Test 07/30/16 11:34 07/30/16 14:29 07/30/16 21:26 07/31/16 05:52 Bedside Glucose 173 127 147 Lab Scanned Report BLOOD TRANSFUSION Test 07/31/16 07:49 Bedside Glucose 134 Medications Medications Current Medications Miscellaneous Information 1 ea NOTE XX ; Start 07/28/16 at 03:30 Glucose (Glutose) 15 gm Q15M PRN PO DECREASED GLUCOSE; Start 07/28/16 at 03:30 Glucose (Glutose) 22.5 gm Q15M PRN PO DECREASED GLUCOSE; Start 07/28/16 at 03: 30 Dextrose (D50w Syringe) 25 ml Q15M PRN IV DECREASED GLUCOSE; Start 07/28/16 at 03:30 Dextrose (D50w Syringe) 50 ml Q15M PRN IV DECREASED GLUCOSE; Start 07/28/16 at 03:30 Glucagon (Glucagen) 1 mg Q15M PRN IM DECREASED GLUCOSE; Start 07/28/16 at 03:30 Glucose (Glutose) 15 gm Q15M PRN BUCCAL DECREASED GLUCOSE; Start 07/28/16 at 03 :30 Pantoprazole (Protonix Iv) 40 mg BID@06,18 IV Last administered on 07/31/16 05 :18; Admin Dose 40 MG; Start 07/29/16 at 06:00 Acetaminophen 650 mg 650 mg Q6H PRN PO PAIN AND OR ELEVATED TEMP Last administered on 07/28/16 23:22; Admin Dose 650 MG; Start 07/28/16 at 23:00 Piperacillin Sod/ Tazobactam Sod (Zosyn 3.375gm/ 100 ml (Pmx)) 100 ml @ 200 mls /hr Q6 IVPB Last administered on 07/31/16 05:18; Admin Dose 200 MLS/HR; Start 07/29/16 at 00:30 Dextrose (D50w Syringe) 25 ml Q15M PRN IV Till BS 80 mg/dL or above x2; Start 07/29/16 at 08:00 Dextrose (D50w Syringe) 50 ml Q15M PRN IV Till BS 80 mg/dL or above x2; Start 07/29/16 at 08:00 Empaglifozin (Jardiance) 10 mg DAILY@08 PO Last administered on 07/31/16 08:02 ; Admin Dose 10 MG; Start 07/31/16 at 08:00 Diagnostic Test (Pha) 1 ea 1 ea 02 XX ; Start 07/31/16 at 02:00 Sodium Chloride (NS) 1,000 ml @ 200 mls/hr Q5H IV Last administered on 08:00; Admin Dose 200 MLS/HR; Start 07/30/16 at 20:00 KEVIN BRYAN MD Jul 31, 2016 11:25
[2016-07-31] MEDS ORDERED: CYANOCOBALAMIN 1000 MCG INJ IM ONE (15:00)
--- NOTE | 2016-07-31 15:02 | CONS ---
Date/Time of Note Date/Time of Note DATE: 07/31/16 TIME: 14:55 Assessment/Plan Assessment/Plan Problems: (1) Anemia Status: Acute Comment: Normocytic anemia with hgb currently stable but it had dropped to 5. GI workup did not show active bleeding signs but duodenal gastric ulcers and now on PPI. Ferritin was low normal and b12 low nl and we will supplement. LDH wnl and will complete anemia work up. Will need to evaluate for BM pathology if persistent anemia and further requirement of blood transfusion. Qualifiers: Qualified Code: D64.89 - Anemia due to other cause, not classified (2) Diabetes mellitus, new onset Status: Acute Comment: follow recs, by endocrine. Consultation Date/Type/Reason Admit Date/Time Jul 28, 2016 at 00:24 Date of Consultation: Jul 31, 2016 Type of Consultation: Heme Reason for Consultation anemia severe Referring Provider: LISETTE MELENDEZ Hx of Present Illness Patient 41 y/o admitted for severe fatigue weakness and now newly diagnosed with DM, but found to have severe anemia requiring 5 units PRBC so far. GI workup with EGD showed severe gastritis, gastric and duodenal ulcers and heme consult requested for further workup. Denies night sweats weight loss, and fevers. Currently feels better and denies melena Constitutional: improved, no complaints Eyes: no complaints Respiratory: no complaints Cardiovascular: no complaints Gastrointestinal: no complaints Genitourinary: no complaints Musculoskeletal: no complaints Skin: no complaints Neurologic: no complaints Psychological: nl mood/affect, no complaints Past Medical History Medical History: no pertinent history Past Surgical History Past Surgical Hx: no surgical history Social History Alcohol Use: sober (used to drink 12-pack plus liquor on weekends) Smoking Status: Former smoker (quit 3 years ago, previously 1-4 cigarettes per day for 10 years) Drug Use: cocaine (in past) Exam/Review of Systems Vital Signs Vitals Vital Signs Date Time Temp Pulse Resp B/P Pulse Ox O2 Delivery O2 Flow Rate FiO2 07/31/16 08:30 97.6 76 18 97/63 97 Room Air 07/29/16 18:18 10 Intake and Output 07/30/16 07/30/16 07/31/16 15:00 23:00 07:00 Intake Total 641 ml 1100 ml 1990 ml Output Total 1200 ml 1150 ml 500 ml Balance -559 ml -50 ml 1490 ml Exam Constitutional: alert, oriented Psych: nl mood/affect Head: normocephalic Eyes: nl conjunctiva Neck: supple Respiratory: normal air movement Cardiovascular: regular rate and rhythm Gastrointestinal: soft Musculoskeletal: nl extremities to inspection Results Result Diagram: 07/30/16 0450 07/30/16 0450 Results 24 hrs Laboratory Tests Test 07/30/16 21:26 07/31/16 05:52 07/31/16 07:49 07/31/16 12:00 Bedside Glucose 147 134 Lab Scanned Report BLOOD TRANSFUSION REFERENCE LAB Test 07/31/16 12:03 Bedside Glucose 86 Medications Medications Current Medications Miscellaneous Information 1 ea NOTE XX ; Start 07/28/16 at 03:30 Glucose (Glutose) 15 gm Q15M PRN PO DECREASED GLUCOSE; Start 07/28/16 at 03:30 Glucose (Glutose) 22.5 gm Q15M PRN PO DECREASED GLUCOSE; Start 07/28/16 at 03: 30 Dextrose (D50w Syringe) 25 ml Q15M PRN IV DECREASED GLUCOSE; Start 07/28/16 at 03:30 Dextrose (D50w Syringe) 50 ml Q15M PRN IV DECREASED GLUCOSE; Start 07/28/16 at 03:30 Glucagon (Glucagen) 1 mg Q15M PRN IM DECREASED GLUCOSE; Start 07/28/16 at 03:30 Glucose (Glutose) 15 gm Q15M PRN BUCCAL DECREASED GLUCOSE; Start 07/28/16 at 03 :30 Pantoprazole (Protonix Iv) 40 mg BID@06,18 IV Last administered on 07/31/16 05 :18; Admin Dose 40 MG; Start 07/29/16 at 06:00 Acetaminophen 650 mg 650 mg Q6H PRN PO PAIN AND OR ELEVATED TEMP Last administered on 07/28/16 23:22; Admin Dose 650 MG; Start 07/28/16 at 23:00 Piperacillin Sod/ Tazobactam Sod (Zosyn 3.375gm/ 100 ml (Pmx)) 100 ml @ 200 mls /hr Q6 IVPB Last administered on 07/31/16 12:05; Admin Dose 200 MLS/HR; Start 07/29/16 at 00:30 Dextrose (D50w Syringe) 25 ml Q15M PRN IV Till BS 80 mg/dL or above x2; Start 07/29/16 at 08:00 Dextrose (D50w Syringe) 50 ml Q15M PRN IV Till BS 80 mg/dL or above x2; Start 07/29/16 at 08:00 Empaglifozin (Jardiance) 10 mg DAILY@08 PO Last administered on 07/31/16 08:02 ; Admin Dose 10 MG; Start 07/31/16 at 08:00 Diagnostic Test (Pha) 1 ea 1 ea 02 XX ; Start 07/31/16 at 02:00 Sodium Chloride (NS) 1,000 ml @ 100 mls/hr Q10H IV Last administered on 08:00; Admin Dose 200 MLS/HR; Start 07/30/16 at 20:00 Cyanocobalamin (Vitamin B12 Inj) 1,000 mcg ONCE ONCE IM ; Start 07/31/16 at 15: 00; Stop 07/31/16 at 15:01 THOMPSON COREAS MD Jul 31, 2016 15:01
--- NOTE | 2016-07-31 15:30 | PN ---
Date/Time of Note Date/Time of Note DATE: 07/31/16 TIME: 15:28 Assessment/Plan VTE Prophylaxis VTE Prophylaxis Intervention: other Lines/Catheters IV Catheter Type (from [facility]): Peripheral IV Assessment/Plan Assessment/Plan - Thrombocytopenia - Hematology consult- Dr Lockett was notified -Hypovolemic versus hemorrhagic shock, continue IV fluids, blood transfusion, ICU care -Possible GI bleed, pending EGD tonight, Dr. Lawrence is following in gastroenterology consultation. -Anemia of blood loss, status post blood transfusion, continue to monitor H&H. - per GI -New onset of diabetes, continue insulin drip. - PER endocrinology -Obesity Further recommendations based on clinical course. End of care discussed with Dr. Chacon. Exam/Review of Systems Vital Signs Vitals Vital Signs Date Time Temp Pulse Resp B/P Pulse Ox O2 Delivery O2 Flow Rate FiO2 07/31/16 08:30 97.6 76 18 97/63 97 Room Air 07/29/16 18:18 10 Intake and Output 07/30/16 07/30/16 07/31/16 15:00 23:00 07:00 Intake Total 641 ml 1100 ml 1990 ml Output Total 1200 ml 1150 ml 500 ml Balance -559 ml -50 ml 1490 ml Exam Constitutional: alert Respiratory: clear to auscultation, normal air movement Cardiovascular: nl pulses, regular rate and rhythm Gastrointestinal: non-tender, soft Musculoskeletal: nl extremities to inspection Extremities: normal pulses Neurological: nl mental status, nl speech Results Result Diagram: 07/30/16 0450 07/30/16 0450 Results 24 hrs Laboratory Tests Test 07/30/16 21:26 07/31/16 05:52 07/31/16 07:49 07/31/16 12:00 Bedside Glucose 147 134 Lab Scanned Report BLOOD TRANSFUSION REFERENCE LAB Test 07/31/16 12:03 Bedside Glucose 86 Medications Medications Current Medications Miscellaneous Information 1 ea NOTE XX ; Start 07/28/16 at 03:30 Glucose (Glutose) 15 gm Q15M PRN PO DECREASED GLUCOSE; Start 07/28/16 at 03:30 Glucose (Glutose) 22.5 gm Q15M PRN PO DECREASED GLUCOSE; Start 07/28/16 at 03: 30 Dextrose (D50w Syringe) 25 ml Q15M PRN IV DECREASED GLUCOSE; Start 07/28/16 at 03:30 Dextrose (D50w Syringe) 50 ml Q15M PRN IV DECREASED GLUCOSE; Start 07/28/16 at 03:30 Glucagon (Glucagen) 1 mg Q15M PRN IM DECREASED GLUCOSE; Start 07/28/16 at 03:30 Glucose (Glutose) 15 gm Q15M PRN BUCCAL DECREASED GLUCOSE; Start 07/28/16 at 03 :30 Pantoprazole (Protonix Iv) 40 mg BID@,18 IV Last administered on 07/31/16 05 :18; Admin Dose 40 MG; Start 07/29/16 at 06:00 Acetaminophen 650 mg 650 mg Q6H PRN PO PAIN AND OR ELEVATED TEMP Last administered on 07/28/16 23:22; Admin Dose 650 MG; Start 07/28/16 at 23:00 Piperacillin Sod/ Tazobactam Sod (Zosyn 3.375gm/ 100 ml (Pmx)) 100 ml @ 200 mls /hr Q6 IVPB Last administered on 07/31/16 12:05; Admin Dose 200 MLS/HR; Start 07/29/16 at 00:30 Dextrose (D50w Syringe) 25 ml Q15M PRN IV Till BS 80 mg/dL or above x2; Start 07/29/16 at 08:00 Dextrose (D50w Syringe) 50 ml Q15M PRN IV Till BS 80 mg/dL or above x2; Start 07/29/16 at 08:00 Empaglifozin (Jardiance) 10 mg DAILY@08 PO Last administered on 07/31/16 08:02 ; Admin Dose 10 MG; Start 07/31/16 at 08:00 Diagnostic Test (Pha) 1 ea 1 ea 02 XX ; Start 07/31/16 at 02:00 Sodium Chloride (NS) 1,000 ml @ 100 mls/hr Q10H IV Last administered on 08:00; Admin Dose 200 MLS/HR; Start 07/30/16 at 20:00 LISETTE MELENDEZ Jul 31, 2016 15:30
--- NOTE | 2016-07-31 19:05 | CONS ---
Date/Time of Note Date/Time of Note DATE: 07/31/16 TIME: 19:04 Assessment/Plan Assessment/Plan Additional Assessment/Plan IMPRESSION: 1. Diabetes mellitus, new onset. 2. Anemia. 3. Abdominal pain, nausea, vomiting. 4.g.i. bleeding from multiple duodenal ulcers Plan PPI refrain from NSAID review pathology Consultation Date/Type/Reason Admit Date/Time Jul 28, 2016 at 00:24 Type of Consultation: Heme Referring Provider: LISETTE MELENDEZ 24 HR Interval Summary Constitutional: improved, no complaints Exam/Review of Systems Vital Signs Vitals Vital Signs Date Time Temp Pulse Resp B/P Pulse Ox O2 Delivery O2 Flow Rate FiO2 07/31/16 08:30 97.6 76 18 97/63 97 Room Air 07/29/16 18:18 10 Intake and Output 07/30/16 07/30/16 07/31/16 15:00 23:00 07:00 Intake Total 641 ml 1100 ml 1990 ml Output Total 1200 ml 1150 ml 500 ml Balance -559 ml -50 ml 1490 ml Exam Constitutional: alert, oriented, well developed Psych: nl mood/affect, no complaints Head: atraumatic, normocephalic Eyes: EOMI, PERRL, nl conjunctiva, nl lids, nl sclera ENMT: nl external ears & nose, nl lips & teeth, nl nasal mucosa & septum Neck: non-tender, supple Respiratory: clear to auscultation, normal air movement Cardiovascular: nl pulses, regular rate and rhythm Gastrointestinal: nl liver, spleen, non-tender, soft Musculoskeletal: nl extremities to inspection, nl gait and stance Extremities: normal pulses 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, nl mental status, nl speech, nl strength Skin: nl turgor, No rash or lesions Lymph: nl lymph nodes Results Result Diagram: 07/30/16 0450 07/30/16 0450 Results 24 hrs Laboratory Tests Test 07/30/16 21:26 07/31/16 05:52 07/31/16 07:49 07/31/16 12:00 Bedside Glucose 147 134 Lab Scanned Report BLOOD TRANSFUSION REFERENCE LAB Test 07/31/16 12:03 07/31/16 17:27 Bedside Glucose 86 115 Medications Medications Current Medications Miscellaneous Information 1 ea NOTE XX ; Start 07/28/16 at 03:30 Glucose (Glutose) 15 gm Q15M PRN PO DECREASED GLUCOSE; Start 07/28/16 at 03:30 Glucose (Glutose) 22.5 gm Q15M PRN PO DECREASED GLUCOSE; Start 07/28/16 at 03: 30 Dextrose (D50w Syringe) 25 ml Q15M PRN IV DECREASED GLUCOSE; Start 07/28/16 at 03:30 Dextrose (D50w Syringe) 50 ml Q15M PRN IV DECREASED GLUCOSE; Start 07/28/16 at 03:30 Glucagon (Glucagen) 1 mg Q15M PRN IM DECREASED GLUCOSE; Start 07/28/16 at 03:30 Glucose (Glutose) 15 gm Q15M PRN BUCCAL DECREASED GLUCOSE; Start 07/28/16 at 03 :30 Pantoprazole (Protonix Iv) 40 mg BID@18 IV Last administered on 07/31/16 17 :30; Admin Dose 40 MG; Start 07/29/16 at 06:00 Acetaminophen 650 mg 650 mg Q6H PRN PO PAIN AND OR ELEVATED TEMP Last administered on 07/28/16 23:22; Admin Dose 650 MG; Start 07/28/16 at 23:00 Piperacillin Sod/ Tazobactam Sod (Zosyn 3.375gm/ 100 ml (Pmx)) 100 ml @ 200 mls /hr Q6 IVPB Last administered on 07/31/16 17:30; Admin Dose 200 MLS/HR; Start 07/29/16 at 00:30 Dextrose (D50w Syringe) 25 ml Q15M PRN IV Till BS 80 mg/dL or above x2; Start 07/29/16 at 08:00 Dextrose (D50w Syringe) 50 ml Q15M PRN IV Till BS 80 mg/dL or above x2; Start 07/29/16 at 08:00 Empaglifozin (Jardiance) 10 mg DAILY@08 PO Last administered on 07/31/16 08:02 ; Admin Dose 10 MG; Start 07/31/16 at 08:00 Diagnostic Test (Pha) 1 ea 1 ea 02 XX ; Start 07/31/16 at 02:00 Sodium Chloride (NS) 1,000 ml @ 100 mls/hr Q10H IV Last administered on 16:06; Admin Dose 100 MLS/HR; Start 07/30/16 at 20:00 WIL ESTRADA MD Jul 31, 2016 19:05
[2016-07-31 20:12] VITALS: BP 116/63; RESP 18
--- NOTE | 2016-07-31 21:10 | CONS ---
DATE OF ADMISSION: 07/28/2016 DATE OF CONSULTATION: 07/30/2016 HISTORY OF PRESENT ILLNESS: A 41-year-old male with a new onset of diabetes mellitus, had GI bleedi ng manifested in the form of melenotic stool, required upper endoscopy, which showed multiple duoden al ulcers and multiple superficial gastric ulcers. No bleeding was seen and was started on PPI. OBJECTIVE: VITAL SIGNS: Stable. ABDOMEN: Benign. LUNGS: Clear. EXTREMITIES: No edema. CENTRAL NERVOUS SYSTEM: Grossly within normal limits. LABORATORY DATA: Hematocrit yesterday was 28. IMPRESSION: 1. Gastrointestinal bleeding from a duodenal ulcer and gastric ulcer. 2. Anemia, which is stable. 3. New onset of diabetes mellitus. 4. Overweight. PLAN: At this point, we will continue PPI. Will review the H. pylori. Will review the pathology r eport. If it is positive for bacteria, will treat the patient. Continue diabetic diet. Dictated By: WIL ESTRADA MD PJ/NTS Conf#: [id number] DID#: [id number] CC: WIL ESTRADA MD; LORENZA CHANEY MD; NEREYDA CISSE MD;*EndCC*
[2016-08-01] MEDS: PIPER-TAZO 3.375 GM IV (PMX) 100 ML IVPB SCH ×4 (00:26→18:37)
[2016-08-01] MEDS: ACCU-CHEK XX SCH (02:00)
[2016-08-01] MEDS: PANTOPRAZOLE 40 MG INJ IV SCH ×2 (05:42→18:37)
[2016-08-01] MEDS: SOD CHLORIDE 0.9% 1,000 ML IV SCH (05:52)
[2016-08-01 06:41] LABS: ADD SCAN DIFF NO
[2016-08-01 06:53] LABS: BASOPHILS % 0.2 % (0.0-2.0); EOSINOPHILS # 0.1 10^3/ul (0.0-0.5); EOSINOPHILS % 1.5 % (0.0-7.0); HEMATOCRIT 29.9 % (42.0-52.0); HEMOGLOBIN 9.9 g/dl (14.0-18.0); LYMPHOCYTES # 1.5 10^3/ul (0.8-2.9); LYMPHOCYTES % 23.4 % (15.0-51.0); MEAN CORPUSCULAR HEMOGLOBIN 29.8 pg (29.0-33.0); MEAN CORPUSCULAR HGB CONC 33.1 g/dl (32.0-37.0); MEAN CORPUSCULAR VOLUME 90.1 fl (82.0-101.0); MEAN PLATELET VOLUME 10.5 fl (7.4-10.4); MONOCYTE # 0.5 10^3/ul (0.3-0.9); MONOCYTES % 6.9 % (0.0-11.0); NEUTROPHIL # 4.3 10^3/ul (1.6-7.5); NEUTROPHILS % 66.3 % (39.0-77.0); NUCLEATED RED BLOOD CELLS% 0.5 /100WBC (0.0-0.0); PLATELET COUNT 148 10^3/UL (140-415); RED BLOOD COUNT 3.32 10^6/ul (4.70-6.10); RED CELL DISTRIBUTION WIDTH 15.9 % (11.5-14.5); WHITE BLOOD COUNT 6.5 10^3/ul (4.8-10.8)
[2016-08-01 07:22] VITALS: BP 104/56; RESP 16
[2016-08-01 07:22] LABS: CALCIUM 8.1 mg/dl (8.4-10.2); CREATININE 0.86 mg/dl (0.61-1.24); POTASSIUM 3.6 mmol/L (3.5-5.1)
[2016-08-01] MEDS: INSULIN ASPART [NOVOLOG] 3 ML PEN SC SCH ×4 (07:59→21:00)
[2016-08-01] MEDS: GLIMEPIRIDE 2 MG TAB PO SCH (08:00)
[2016-08-01] MEDS: EMPAGLIFLOZIN 10 MG TABLET PO SCH (08:00)
[2016-08-01] MEDS: metFORMIN (XR) 500 MG TAB PO SCH ×2 (09:10→18:38)
--- NOTE | 2016-08-01 10:00 | PQ ---
Date/Time of Note Date/Time of Note DATE: 08/01/16 TIME: 09:56 Physician Query Documentation Clarification Dear , A review of the medical record found a need for documentation clarification. Progress note : Gastrointestinal bleeding from a duodenal ulcer and gastric ulcer. Anemia ( without specificity) H/H -8.4/24.4 ---> 5.1/ 14 5 units PRBC given ( 07/28-) Please clarify/specify the anemia being treated. 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 You may also document your response on your progress notes. Thank you for your time. With appreciation, Jared Arriaga RN, BSN, CCS, CCDS [employer], [employer] Services [phone] Room [id number]~ [address] JARED ARRIAGA Aug 01, 2016 10:00
--- NOTE | 2016-08-01 13:17 | CONS ---
Date/Time of Note Date/Time of Note DATE: 08/01/16 TIME: 13:13 Assessment/Plan Assessment/Plan Problems: (1) Diabetes mellitus, new onset Status: Acute Comment: Excellent glycemic control. Risk for hypoglycemia on current regimen. Change glimepiride to tradjenta. CM to investigate if tradjenta and jardiance covered by patient's insurance after d/c O/w ready for d/c from endo standpoint. Will HLIV as pt. has completed rehydration. Consultation Date/Type/Reason Admit Date/Time Jul 28, 2016 at 00:24 Initial Consult Date 07/30/16 Type of Consultation: Endocrinology Reason for Consultation New onset T2DM Referring Provider: LISETTE MELENDEZ 24 HR Interval Summary Constitutional: improved, no complaints Detailed Summary Respiratory: no complaints Cardiovascular: no complaints Gastrointestinal: no complaints Genitourinary: no complaints Musculoskeletal: no complaints Neurologic: no complaints Exam/Review of Systems Vital Signs Vitals VS - Last 72 Hours, by Label Date Time Temp Pulse Resp B/P Pulse Ox O2 Delivery O2 Flow Rate FiO2 08/01/16 07:22 98.3 83 16 104/56 95 07/31/16 20:12 98.0 70 18 116/63 100 07/31/16 08:30 97.6 76 18 97/63 97 Room Air 07/30/16 22:00 98.5 84 18 131/78 98 07/30/16 21:00 80 11 110/75 98 Room Air 07/30/16 20:00 98.8 72 16 115/71 100 Room Air 07/30/16 19:00 74 17 95/52 100 Room Air 07/30/16 18:30 80 14 106/76 98 Room Air 07/30/16 17:30 91 19 112/78 98 Room Air 07/30/16 17:00 74 18 101/63 100 Room Air 07/30/16 16:30 70 10 106/66 100 Room Air 07/30/16 16:00 98.4 76 15 104/68 100 Room Air 07/30/16 16:00 72 07/30/16 15:30 70 18 106/61 99 Room Air 07/30/16 15:00 75 14 108/73 100 Room Air 07/30/16 14:30 78 16 108/73 100 Room Air 07/30/16 14:00 67 10 100/46 99 Room Air 07/30/16 13:30 77 18 90/45 98 Room Air 07/30/16 13:00 76 20 101/55 99 Room Air 07/30/16 12:00 98.2 74 12 93/56 100 Room Air 07/30/16 12:00 75 07/30/16 11:00 73 14 76/43 97 Room Air 07/30/16 10:30 79 16 82/42 98 Room Air 07/30/16 10:00 66 10 95/65 100 Room Air 07/30/16 09:30 94 15 103/65 100 Room Air 07/30/16 09:00 81 15 82/49 97 Room Air 07/30/16 08:30 75 11 90/62 97 Room Air 07/30/16 08:00 98.3 67 13 92/47 98 Room Air 07/30/16 08:00 71 07/30/16 07:30 73 14 87/58 96 Room Air 07/30/16 04:00 76 07/30/16 03:00 71 15 98/65 99 07/30/16 02:00 91 19 91/53 98 07/30/16 01:00 76 14 93/52 97 07/30/16 00:00 98.7 81 17 102/60 98 07/30/16 00:00 82 07/29/16 23:00 85 17 92/47 98 07/29/16 22:00 85 14 90/55 98 07/29/16 21:00 81 16 108/73 99 07/29/16 20:00 98.5 88 15 127/103 99 07/29/16 20:00 91 07/29/16 19:00 87 20 98 07/29/16 18:24 90 18 100/55 99 07/29/16 18:18 Non Rebreather 10 07/29/16 17:11 98.7 83 17 93/54 96 07/29/16 17:08 87/54 07/29/16 16:15 80 15 93/48 100 07/29/16 16:00 98.7 76 17 119/62 100 Room Air 07/29/16 16:00 75 07/29/16 15:45 81 19 102/53 98 07/29/16 15:30 77 13 95/61 100 07/29/16 15:15 78 15 97/60 100 07/29/16 15:00 79 16 92/65 99 Room Air 07/29/16 14:45 76 16 83/62 98 07/29/16 14:30 76 13 92/54 98 07/29/16 14:15 79 13 97/55 97 07/29/16 14:00 79 19 95/54 100 Room Air Vital Signs Date Time Temp Pulse Resp B/P Pulse Ox O2 Delivery O2 Flow Rate FiO2 08/01/16 07:22 98.3 83 16 104/56 95 07/31/16 08:30 Room Air 07/29/16 18:18 10 Intake and Output 07/31/16 07/31/16 08/01/16 15:00 23:00 07:00 Intake Total 2510 ml 1600 ml Balance 2510 ml 1600 ml Exam Constitutional: alert, obese, oriented Psych: nl mood/affect, no complaints Respiratory: clear to auscultation, normal air movement Cardiovascular: nl pulses, regular rate and rhythm, No edema, No murmurs/extra sounds, No rub Gastrointestinal: bowel sounds, nl liver, spleen, non-tender, soft, No mass, No rebound or guarding Musculoskeletal: nl extremities to inspection Extremities: normal pulses, No clubbing, No cyanosis, No edema 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, nl mental status, nl speech, nl strength Additional Comments Bedside Glucose - 72 Hours Test 07/29/16 14:05 07/29/16 14:55 07/29/16 16:09 07/29/16 17:49 Bedside Glucose 136mg/dL (70-220) 152mg/dL (70-220) 116mg/dL (70-220) 140mg/dL (70-220) Test 07/29/16 20:32 07/29/16 21:57 07/29/16 23:49 07/30/16 02:09 Bedside Glucose 165mg/dL (70-220) 188mg/dL (70-220) 134mg/dL (70-220) 126mg/dL (70-220) Test 07/30/16 04:11 07/30/16 05:42 07/30/16 08:07 07/30/16 10:30 Bedside Glucose 118mg/dL (70-220) 104mg/dL (70-220) 142mg/dL (70-220) 188mg/dL (70-220) Test 07/30/16 11:34 07/30/16 14:29 07/30/16 17:24 07/30/16 21:26 Bedside Glucose 173mg/dL (70-220) 127mg/dL (70-220) 114mg/dL (70-220) 147mg/dL (70-220) Test 07/31/16 07:49 07/31/16 12:03 07/31/16 17:27 07/31/16 20:32 Bedside Glucose 134mg/dL (70-220) 86mg/dL (70-220) 115mg/dL (70-220) 96mg/dL (70-220) Test 08/01/16 07:58 08/01/16 12:09 Bedside Glucose 125mg/dL (70-220) 122mg/dL (70-220) Results Result Diagram: 08/01/16 0510 08/01/16 0510 Results 24 hrs Laboratory Tests Test 07/31/16 17:27 07/31/16 20:32 08/01/16 05:10 08/01/16 07:58 Bedside Glucose 115 96 125 White Blood Count 6.5 Red Blood Count 3.32 L Hemoglobin 9.9 L Hematocrit 29.9 L Mean Corpuscular Volume 90.1 Mean Corpuscular Hemoglobin 29.8 Mean Corpuscular Hemoglobin Concent 33.1 Red Cell Distribution Width 15.9 H Platelet Count 148 # Mean Platelet Volume 10.5 H Neutrophils % 66.3 Lymphocytes % 23.4 Monocytes % 6.9 Eosinophils % 1.5 Basophils % 0.2 Nucleated Red Blood Cells % 0.5 H Neutrophils # 4.3 Lymphocytes # 1.5 Monocytes # 0.5 Eosinophils # 0.1 Basophils # 0.0 Nucleated Red Blood Cells # 0.0 Sodium Level 141 Potassium Level 3.6 Chloride Level 111 H Carbon Dioxide Level 25 Anion Gap 9 Blood Urea Nitrogen 10 Creatinine 0.86 Glucose Level 105 Calcium Level 8.1 L Test 08/01/16 12:09 Bedside Glucose 122 Medications Medications Current Medications Miscellaneous Information 1 ea NOTE XX ; Start 07/28/16 at 03:30 Glucose (Glutose) 15 gm Q15M PRN PO DECREASED GLUCOSE; Start 07/28/16 at 03:30 Glucose (Glutose) 22.5 gm Q15M PRN PO DECREASED GLUCOSE; Start 07/28/16 at 03: 30 Dextrose (D50w Syringe) 25 ml Q15M PRN IV DECREASED GLUCOSE; Start 07/28/16 at 03:30 Dextrose (D50w Syringe) 50 ml Q15M PRN IV DECREASED GLUCOSE; Start 07/28/16 at 03:30 Glucagon (Glucagen) 1 mg Q15M PRN IM DECREASED GLUCOSE; Start 07/28/16 at 03:30 Glucose (Glutose) 15 gm Q15M PRN BUCCAL DECREASED GLUCOSE; Start 07/28/16 at 03 :30 Pantoprazole (Protonix Iv) 40 mg BID@,18 IV Last administered on 08/01/16 05 :42; Admin Dose 40 MG; Start 07/29/16 at 06:00 Acetaminophen 650 mg 650 mg Q6H PRN PO PAIN AND OR ELEVATED TEMP Last administered on 07/28/16 23:22; Admin Dose 650 MG; Start 07/28/16 at 23:00 Piperacillin Sod/ Tazobactam Sod (Zosyn 3.375gm/ 100 ml (Pmx)) 100 ml @ 200 mls /hr Q6 IVPB Last administered on 08/01/16 12:10; Admin Dose 200 MLS/HR; Start 07/29/16 at 00:30 Dextrose (D50w Syringe) 25 ml Q15M PRN IV Till BS 80 mg/dL or above x2; Start 07/29/16 at 08:00 Dextrose (D50w Syringe) 50 ml Q15M PRN IV Till BS 80 mg/dL or above x2; Start 07/29/16 at 08:00 Empaglifozin (Jardiance) 10 mg DAILY@08 PO Last administered on 08/01/16 08:00 ; Admin Dose 10 MG; Start 07/31/16 at 08:00 Diagnostic Test (Pha) 1 ea 1 ea 02 XX ; Start 07/31/16 at 02:00 Sodium Chloride (NS) 1,000 ml @ 100 mls/hr Q10H IV Last administered on 05:52; Admin Dose 100 MLS/HR; Start 07/30/16 at 20:00 Linagliptin (Tradjenta) 5 mg DAILY PO ; Start 08/02/16 at 09:00 KEVIN BRYAN MD Aug 01, 2016 13:17
--- NOTE | 2016-08-01 15:17 | CONS ---
Date/Time of Note Date/Time of Note DATE: 08/01/16 TIME: 15:12 Assessment/Plan Assessment/Plan Chief Complaint/Hosp Course 41 yo admitted with Normocytic anemia secondary to GI bleed. EGD was done which revealed severe gastritis and duodenal and gastric ulcers. Since blood transfusion patient's Hg has been stable and it does not appear the patient is actively bleeding. -Given history of GI Bleed, will iron supplementation IV to help anemia to recover -cont PPI per GI -if Hg continues to fall despite IV iron and in the absence of GI bleed, will pursue BM BX at that time . Problems: Consultation Date/Type/Reason Admit Date/Time Jul 28, 2016 at 00:24 Initial Consult Date 07/31/16 Type of Consultation: Hematology Reason for Consultation iron deficiency anemia Referring Provider: LISETTE MELENDEZ 24 HR Interval Summary Free Text/Dictation patient has since received 5 units of PRBCs. Hg has remained stable Exam/Review of Systems Vital Signs Vitals Vital Signs Date Time Temp Pulse Resp B/P Pulse Ox O2 Delivery O2 Flow Rate FiO2 08/01/16 07:22 98.3 83 16 104/56 95 07/31/16 08:30 Room Air 07/29/16 18:18 10 Intake and Output 07/31/16 07/31/16 08/01/16 15:00 23:00 07:00 Intake Total 2510 ml 1600 ml Balance 2510 ml 1600 ml Exam Constitutional: alert, oriented Psych: no complaints Head: atraumatic, normocephalic Eyes: nl conjunctiva ENMT: nl external ears & nose Neck: non-tender, supple Respiratory: clear to auscultation, normal air movement Cardiovascular: nl pulses, regular rate and rhythm Gastrointestinal: soft Musculoskeletal: nl extremities to inspection, nl gait and stance Results Result Diagram: 08/01/16 0510 08/01/16 0510 Results 24 hrs Laboratory Tests Test 07/31/16 17:27 07/31/16 20:32 08/01/16 05:10 08/01/16 07:58 Bedside Glucose 115 96 125 White Blood Count 6.5 Red Blood Count 3.32 L Hemoglobin 9.9 L Hematocrit 29.9 L Mean Corpuscular Volume 90.1 Mean Corpuscular Hemoglobin 29.8 Mean Corpuscular Hemoglobin Concent 33.1 Red Cell Distribution Width 15.9 H Platelet Count 148 # Mean Platelet Volume 10.5 H Neutrophils % 66.3 Lymphocytes % 23.4 Monocytes % 6.9 Eosinophils % 1.5 Basophils % 0.2 Nucleated Red Blood Cells % 0.5 H Neutrophils # 4.3 Lymphocytes # 1.5 Monocytes # 0.5 Eosinophils # 0.1 Basophils # 0.0 Nucleated Red Blood Cells # 0.0 Sodium Level 141 Potassium Level 3.6 Chloride Level 111 H Carbon Dioxide Level 25 Anion Gap 9 Blood Urea Nitrogen 10 Creatinine 0.86 Glucose Level 105 Calcium Level 8.1 L Test 08/01/16 12:09 Bedside Glucose 122 Medications Medications Current Medications Miscellaneous Information 1 ea NOTE XX ; Start 07/28/16 at 03:30 Glucose (Glutose) 15 gm Q15M PRN PO DECREASED GLUCOSE; Start 07/28/16 at 03:30 Glucose (Glutose) 22.5 gm Q15M PRN PO DECREASED GLUCOSE; Start 07/28/16 at 03: 30 Dextrose (D50w Syringe) 25 ml Q15M PRN IV DECREASED GLUCOSE; Start 07/28/16 at 03:30 Dextrose (D50w Syringe) 50 ml Q15M PRN IV DECREASED GLUCOSE; Start 07/28/16 at 03:30 Glucagon (Glucagen) 1 mg Q15M PRN IM DECREASED GLUCOSE; Start 07/28/16 at 03:30 Glucose (Glutose) 15 gm Q15M PRN BUCCAL DECREASED GLUCOSE; Start 07/28/16 at 03 :30 Pantoprazole (Protonix Iv) 40 mg BID@06,18 IV Last administered on 08/01/16 05 :42; Admin Dose 40 MG; Start 07/29/16 at 06:00 Acetaminophen 650 mg 650 mg Q6H PRN PO PAIN AND OR ELEVATED TEMP Last administered on 07/28/16 23:22; Admin Dose 650 MG; Start 07/28/16 at 23:00 Piperacillin Sod/ Tazobactam Sod (Zosyn 3.375gm/ 100 ml (Pmx)) 100 ml @ 200 mls /hr Q6 IVPB Last administered on 08/01/16 12:10; Admin Dose 200 MLS/HR; Start 07/29/16 at 00:30 Dextrose (D50w Syringe) 25 ml Q15M PRN IV Till BS 80 mg/dL or above x2; Start 07/29/16 at 08:00 Dextrose (D50w Syringe) 50 ml Q15M PRN IV Till BS 80 mg/dL or above x2; Start 07/29/16 at 08:00 Empaglifozin (Jardiance) 10 mg DAILY@08 PO Last administered on 08/01/16t 08:00 ; Admin Dose 10 MG; Start 07/31/16 at 08:00 Diagnostic Test (Pha) (Accu-Chek) 1 ea 02 XX ; Start 07/31/16 at 02:00 Linagliptin (Tradjenta) 5 mg DAILY PO ; Start 08/02/16 at 09:00 MARIANNA BRYANT M.D. Aug 01, 2016 15:17
--- NOTE | 2016-08-01 16:32 | RADRPT ---
PROCEDURE: Left knee x-ray CLINICAL INDICATION: Fall with left knee pain. TECHNIQUE: AP, lateral and oblique views of the knee were obtained. COMPARISON: None FINDINGS: The soft tissues and bony elements are normal. No joint space effusion is noted. The joint spaces a re normal. IMPRESSION: Normal left knee. RPTAT:AAJJ Physician Travis Date Time Electronically viewed and signed by Jose Garcia Physician on 08/01/2016 16:32 /
[2016-08-01] MEDS: SOD FERRIC GLUC COMPLX 125 MG in SOD CHLORIDE 0.9% 100 ML IVPB SCH (17:23)
--- NOTE | 2016-08-01 18:25 | PN ---
Date/Time of Note Date/Time of Note DATE: 08/01/16 TIME: 18:20 Assessment/Plan VTE Prophylaxis VTE Prophylaxis Intervention: SCD's Lines/Catheters IV Catheter Type (from Nrs): Peripheral IV Assessment/Plan Chief Complaint/Hosp Course Patient complains of knee pain will obtain x-ray, patient denies any nausea vomiting, tolerates diet well good blood sugar control. Assessment/Plan -Severe gastritis with gastric and duodenal ulcers per EGD, continue Protonix, Dr. Lawrence is following in gastroenterology consultation. -S/p hypovolemic versus hemorrhagic shock. -Status post GI bleed secondary to gastric and duodenal duodenal ulcers. -Anemia of blood loss, status post blood transfusion, continue to monitor H&H. -New onset of diabetes, Dr. Barrow is following an endocrinology consultation, continue current regimen. -Obesity, weight loss advised. Further recommendations based on clinical course. End of care discussed with Dr. Chacon. Problems: Exam/Review of Systems Vital Signs Vitals Vital Signs Date Time Temp Pulse Resp B/P Pulse Ox O2 Delivery O2 Flow Rate FiO2 08/01/16 07:22 98.3 83 16 104/56 95 07/31/16 08:30 Room Air 07/29/16 18:18 10 Intake and Output 07/31/16 07/31/16 08/01/16 15:00 23:00 07:00 Intake Total 2510 ml 1600 ml Balance 2510 ml 1600 ml Exam Constitutional: alert, obese, well developed Head: normocephalic Neck: non-tender, supple Respiratory: clear to auscultation Cardiovascular: nl pulses Gastrointestinal: non-tender Extremities: normal pulses Neurological: nl mental status Results Result Diagram: 08/01/16 0510 08/01/16 0510 Results 24 hrs Laboratory Tests Test 07/31/16 20:32 08/01/16 05:10 08/01/16 07:58 08/01/16 12:09 Bedside Glucose 96 125 122 White Blood Count 6.5 Red Blood Count 3.32 L Hemoglobin 9.9 L Hematocrit 29.9 L Mean Corpuscular Volume 90.1 Mean Corpuscular Hemoglobin 29.8 Mean Corpuscular Hemoglobin Concent 33.1 Red Cell Distribution Width 15.9 H Platelet Count 148 # Mean Platelet Volume 10.5 H Neutrophils % 66.3 Lymphocytes % 23.4 Monocytes % 6.9 Eosinophils % 1.5 Basophils % 0.2 Nucleated Red Blood Cells % 0.5 H Neutrophils # 4.3 Lymphocytes # 1.5 Monocytes # 0.5 Eosinophils # 0.1 Basophils # 0.0 Nucleated Red Blood Cells # 0.0 Sodium Level 141 Potassium Level 3.6 Chloride Level 111 H Carbon Dioxide Level 25 Anion Gap 9 Blood Urea Nitrogen 10 Creatinine 0.86 Glucose Level 105 Calcium Level 8.1 L Test 08/01/16 17:50 Bedside Glucose 72 Medications Medications Current Medications Miscellaneous Information 1 ea NOTE XX ; Start 07/28/16 at 03:30 Glucose (Glutose) 15 gm Q15M PRN PO DECREASED GLUCOSE; Start 07/28/16 at 03:30 Glucose (Glutose) 22.5 gm Q15M PRN PO DECREASED GLUCOSE; Start 07/28/16 at 03: 30 Dextrose (D50w Syringe) 25 ml Q15M PRN IV DECREASED GLUCOSE; Start 07/28/16 at 03:30 Dextrose (D50w Syringe) 50 ml Q15M PRN IV DECREASED GLUCOSE; Start 07/28/16 at 03:30 Glucagon (Glucagen) 1 mg Q15M PRN IM DECREASED GLUCOSE; Start 07/28/16 at 03:30 Glucose (Glutose) 15 gm Q15M PRN BUCCAL DECREASED GLUCOSE; Start 07/28/16 at 03 :30 Pantoprazole (Protonix Iv) 40 mg BID@06,18 IV Last administered on 08/01/16 05 :42; Admin Dose 40 MG; Start 07/29/16 at 06:00 Acetaminophen 650 mg 650 mg Q6H PRN PO PAIN AND OR ELEVATED TEMP Last administered on 07/28/16 23:22; Admin Dose 650 MG; Start 07/28/16 at 23:00 Piperacillin Sod/ Tazobactam Sod (Zosyn 3.375gm/ 100 ml (Pmx)) 100 ml @ 200 mls /hr Q6 IVPB Last administered on 08/01/16 12:10; Admin Dose 200 MLS/HR; Start 07/29/16 at 00:30 Dextrose (D50w Syringe) 25 ml Q15M PRN IV Till BS 80 mg/dL or above x2; Start 07/29/16 at 08:00 Dextrose (D50w Syringe) 50 ml Q15M PRN IV Till BS 80 mg/dL or above x2; Start 07/29/16 at 08:00 Empaglifozin (Jardiance) 10 mg DAILY@08 PO Last administered on 08/01/16 08:00 ; Admin Dose 10 MG; Start 07/31/16 at 08:00 Diagnostic Test (Pha) (Accu-Chek) 1 ea 02 XX ; Start 07/31/16 at 02:00 Linagliptin 5 mg 5 mg DAILY PO ; Start 08/02/16 at 09:00 Ferric Sodium Gluconate Complex/ Sodium Chloride (Ferrlecit/NS) 110 ml @ 100 mls/hr Q24H IVPB Last administered on 08/01/16 17:23; Admin Dose 100 MLS/HR; Start 08/01/16 at 17:00; Stop 08/03/16 at 18:05 EDUIN DC Aug 01, 2016 18:24
[2016-08-01 19:45] VITALS: BP 96/59; RESP 18
--- NOTE | 2016-08-01 21:43 | CONS ---
Date/Time of Note Date/Time of Note DATE: 08/01/16 TIME: 21:41 Assessment/Plan Assessment/Plan Additional Assessment/Plan IMPRESSION: 1. Gastrointestinal bleeding from a duodenal ulcer and gastric ulcer. 2. Anemia, which is stable. 3. New onset of diabetes mellitus. 4. Overweight. PLAN: At this point, we will continue PPI. H. pylori.negative, Will review the pathology report. Continue diabetic diet. Consultation Date/Type/Reason Admit Date/Time Jul 28, 2016 at 00:24 Type of Consultation: Hematology Referring Provider: LISETTE MELENDEZ 24 HR Interval Summary Constitutional: no complaints Exam/Review of Systems Vital Signs Vitals Vital Signs Date Time Temp Pulse Resp B/P Pulse Ox O2 Delivery O2 Flow Rate FiO2 08/01/16 19:45 98.0 76 18 96/59 98 07/31/16 08:30 Room Air 07/29/16 18:18 10 Intake and Output 07/31/16 07/31/16 08/01/16 15:00 23:00 07:00 Intake Total 2510 ml 1600 ml Balance 2510 ml 1600 ml Exam Constitutional: alert, oriented, well developed Psych: nl mood/affect, no complaints Head: atraumatic, normocephalic Eyes: EOMI, PERRL, nl conjunctiva, nl lids, nl sclera ENMT: nl external ears & nose, nl lips & teeth, nl nasal mucosa & septum Neck: non-tender, supple Respiratory: clear to auscultation, normal air movement Cardiovascular: nl pulses, regular rate and rhythm Gastrointestinal: nl liver, spleen, non-tender, soft Musculoskeletal: nl extremities to inspection, nl gait and stance Extremities: normal pulses Neurological: 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9 Eosinophils % 1.5 Basophils % 0.2 Nucleated Red Blood Cells % 0.5 H Neutrophils # 4.3 Lymphocytes # 1.5 Monocytes # 0.5 Eosinophils # 0.1 Basophils # 0.0 Nucleated Red Blood Cells # 0.0 Sodium Level 141 Potassium Level 3.6 Chloride Level 111 H Carbon Dioxide Level 25 Anion Gap 9 Blood Urea Nitrogen 10 Creatinine 0.86 Glucose Level 105 Calcium Level 8.1 L Bedside Glucose 125 122 72 Test 08/01/16 18:39 08/01/16 21:00 Bedside Glucose 115 145 Medications Medications Current Medications Miscellaneous Information 1 ea NOTE XX ; Start 07/28/16 at 03:30 Glucose (Glutose) 15 gm Q15M PRN PO DECREASED GLUCOSE; Start 07/28/16 at 03:30 Glucose (Glutose) 22.5 gm Q15M PRN PO DECREASED GLUCOSE; Start 07/28/16 at 03: 30 Dextrose (D50w Syringe) 25 ml Q15M PRN IV DECREASED GLUCOSE; Start 07/28/16 at 03:30 Dextrose (D50w Syringe) 50 ml Q15M PRN IV DECREASED GLUCOSE; Start 07/28/16 at 03:30 Glucagon (Glucagen) 1 mg Q15M PRN IM DECREASED GLUCOSE; Start 07/28/16 at 03:30 Glucose (Glutose) 15 gm Q15M PRN BUCCAL DECREASED GLUCOSE; Start 07/28/16 at 03 :30 Pantoprazole (Protonix Iv) 40 mg BID@06,18 IV Last administered on 08/01/16 18 :37; Admin Dose 40 MG; Start 07/29/16 at 06:00 Acetaminophen 650 mg 650 mg Q6H PRN PO PAIN AND OR ELEVATED TEMP Last administered on 07/28/16 23:22; Admin Dose 650 MG; Start 07/28/16 at 23:00 Piperacillin Sod/ Tazobactam Sod (Zosyn 3.375gm/ 100 ml (Pmx)) 100 ml @ 200 mls /hr Q6 IVPB Last administered on 08/01/16 18:37; Admin Dose 200 MLS/HR; Start 07/29/16 at 00:30 Dextrose (D50w Syringe) 25 ml Q15M PRN IV Till BS 80 mg/dL or above x2; Start 07/29/16 at 08:00 Dextrose (D50w Syringe) 50 ml Q15M PRN IV Till BS 80 mg/dL or above x2; Start 07/29/16 at 08:00 Empaglifozin (Jardiance) 10 mg DAILY@08 PO Last administered on 08/01/16 08:00 ; Admin Dose 10 MG; Start 07/31/16 at 08:00 Diagnostic Test (Pha) (Accu-Chek) 1 ea 02 XX ; Start 07/31/16 at 02:00 Linagliptin 5 mg 5 mg DAILY PO ; Start 08/02/16 at 09:00 Ferric Sodium Gluconate Complex/ Sodium Chloride (Ferrlecit/NS) 110 ml @ 100 mls/hr Q24H IVPB Last administered on 08/01/16 17:23; Admin Dose 100 MLS/HR; Start 08/01/16 at 17:00; Stop 08/03/16 at 18:05 WLI ESTRADA MD Aug 01, 2016 21:43
[2016-08-02] MEDS: PIPER-TAZO 3.375 GM IV (PMX) 100 ML IVPB SCH ×3 (00:08→11:46)
[2016-08-02] MEDS: ACCU-CHEK XX SCH (02:00)
[2016-08-02 06:04] LABS: ADD SCAN DIFF NO
[2016-08-02 06:07] LABS: BASOPHILS % 0.2 % (0.0-2.0); EOSINOPHILS # 0.1 10^3/ul (0.0-0.5); EOSINOPHILS % 1.2 % (0.0-7.0); HEMATOCRIT 32.2 % (42.0-52.0); HEMOGLOBIN 10.6 g/dl (14.0-18.0); LYMPHOCYTES # 1.5 10^3/ul (0.8-2.9); LYMPHOCYTES % 23.4 % (15.0-51.0); MEAN CORPUSCULAR HEMOGLOBIN 29.1 pg (29.0-33.0); MEAN CORPUSCULAR HGB CONC 32.9 g/dl (32.0-37.0); MEAN CORPUSCULAR VOLUME 88.5 fl (82.0-101.0); MEAN PLATELET VOLUME 10.3 fl (7.4-10.4); MONOCYTE # 0.5 10^3/ul (0.3-0.9); MONOCYTES % 7.9 % (0.0-11.0); NEUTROPHIL # 4.3 10^3/ul (1.6-7.5); NEUTROPHILS % 66.2 % (39.0-77.0); NUCLEATED RED BLOOD CELLS% 0.3 /100WBC (0.0-0.0); PLATELET COUNT 161 10^3/UL (140-415); RED BLOOD COUNT 3.64 10^6/ul (4.70-6.10); RED CELL DISTRIBUTION WIDTH 15.1 % (11.5-14.5); WHITE BLOOD COUNT 6.5 10^3/ul (4.8-10.8)
[2016-08-02] MEDS: PANTOPRAZOLE 40 MG INJ IV SCH ×2 (06:13→17:42)
[2016-08-02 06:57] LABS: CREATININE 0.81 mg/dl (0.61-1.24); POTASSIUM 3.4 mmol/L (3.5-5.1)
[2016-08-02 07:17] LABS: CHOL/HDL RATIO 4.4 RATIO
[2016-08-02 07:23] VITALS: BP 95/57; RESP 18
[2016-08-02] MEDS: INSULIN ASPART [NOVOLOG] 3 ML PEN SC SCH ×4 (08:06→21:00)
[2016-08-02] MEDS: LINAGLIPTIN 5 MG TABLET PO SCH (08:20)
[2016-08-02] MEDS: EMPAGLIFLOZIN 10 MG TABLET PO SCH (08:20)
[2016-08-02] MEDS: metFORMIN (XR) 500 MG TAB PO SCH ×2 (08:20→18:27)
--- NOTE | 2016-08-02 08:54 | CONS ---
Date/Time of Note Date/Time of Note DATE: 08/02/16 TIME: 08:53 Assessment/Plan Assessment/Plan Additional Assessment/Plan Additional Assessment/Plan IMPRESSION: 1. Gastrointestinal bleeding from a duodenal ulcer and gastric ulcer. 2. Anemia, which is stable. 3. New onset of diabetes mellitus. 4. Overweight. PLAN: At this point, we will continue PPI. H. pylori.negative, Avoid NSAID Consultation Date/Type/Reason Admit Date/Time Jul 28, 2016 at 00:24 Type of Consultation: Hematology Referring Provider: LISETTE MELENDEZ 24 HR Interval Summary Constitutional: improved, no complaints Exam/Review of Systems Vital Signs Vitals Vital Signs Date Time Temp Pulse Resp B/P Pulse Ox O2 Delivery O2 Flow Rate FiO2 08/02/16 07:23 98.0 67 18 95/57 94 07/31/16 08:30 Room Air 07/29/16 18:18 10 Intake and Output 08/01/16 08/01/16 08/02/16 15:00 23:00 07:00 Intake Total 100 ml 2010 ml 1400 ml Balance 100 ml 2010 ml 1400 ml Exam Constitutional: alert, oriented, well developed Psych: nl mood/affect, no complaints Head: atraumatic, normocephalic Eyes: EOMI, PERRL, nl conjunctiva, nl lids, nl sclera ENMT: nl external ears & nose, nl lips & teeth, nl nasal mucosa & septum Neck: non-tender, supple Respiratory: clear to auscultation, normal air movement Cardiovascular: nl pulses, regular rate and rhythm Gastrointestinal: nl liver, spleen, non-tender, soft Musculoskeletal: nl extremities to inspection, nl gait and stance Extremities: normal pulses Neurological: MANAGER STATE II-XII intact, nl mental status, nl speech, nl strength Skin: nl turgor, No rash or lesions Lymph: nl lymph nodes Results Result Diagram: 08/02/16 0455 08/02/16 0455 Results 24 hrs Laboratory Tests Test 08/01/16 12:09 08/01/16 17:50 08/01/16 18:39 08/01/16 21:00 Bedside Glucose 122 72 115 145 Test 08/02/16 04:55 08/02/16 08:05 White Blood Count 6.5 Red Blood Count 3.64 L Hemoglobin 10.6 L Hematocrit 32.2 L Mean Corpuscular Volume 88.5 Mean Corpuscular Hemoglobin 29.1 Mean Corpuscular Hemoglobin Concent 32.9 Red Cell Distribution Width 15.1 H Platelet Count 161 Mean Platelet Volume 10.3 Neutrophils % 66.2 Lymphocytes % 23.4 Monocytes % 7.9 Eosinophils % 1.2 Basophils % 0.2 Nucleated Red Blood Cells % 0.3 H Neutrophils # 4.3 Lymphocytes # 1.5 Monocytes # 0.5 Eosinophils # 0.1 Basophils # 0.0 Nucleated Red Blood Cells # 0.0 Sodium Level 142 Potassium Level 3.4 L Chloride Level 110 Carbon Dioxide Level 22 Anion Gap 13 Blood Urea Nitrogen 10 Creatinine 0.81 Glucose Level 126 Calcium Level 9.0 Triglycerides Level 144 Cholesterol Level 119 LDL Cholesterol, Calculated 63 HDL Cholesterol 27 Cholesterol/HDL Ratio 4.4 Bedside Glucose 122 Medications Medications Current Medications Miscellaneous Information 1 ea NOTE XX ; Start 07/28/16 at 03:30 Glucose (Glutose) 15 gm Q15M PRN PO DECREASED GLUCOSE; Start 07/28/16 at 03:30 Glucose (Glutose) 22.5 gm Q15M PRN PO DECREASED GLUCOSE; Start 07/28/16 at 03: 30 Dextrose (D50w Syringe) 25 ml Q15M PRN IV DECREASED GLUCOSE; Start 07/28/16 at 03:30 Dextrose (D50w Syringe) 50 ml Q15M PRN IV DECREASED GLUCOSE; Start 07/28/16 at 03:30 Glucagon (Glucagen) 1 mg Q15M PRN IM DECREASED GLUCOSE; Start 07/28/16 at 03:30 Glucose (Glutose) 15 gm Q15M PRN BUCCAL DECREASED GLUCOSE; Start 07/28/16 at 03 :30 Pantoprazole (Protonix Iv) 40 mg BID@06,18 IV Last administered on 08/02/16 06 :13; Admin Dose 40 MG; Start 07/29/16 at 06:00 Acetaminophen 650 mg 650 mg Q6H PRN PO PAIN AND OR ELEVATED TEMP Last administered on 07/28/16 23:22; Admin Dose 650 MG; Start 07/28/16 at 23:00 Piperacillin Sod/ Tazobactam Sod (Zosyn 3.375gm/ 100 ml (Pmx)) 100 ml @ 200 mls /hr Q6 IVPB Last administered on 08/02/16 06:14; Admin Dose 200 MLS/HR; Start 07/29/16 at 00:30 Dextrose (D50w Syringe) 25 ml Q15M PRN IV Till BS 80 mg/dL or above x2; Start 07/29/16 at 08:00 Dextrose (D50w Syringe) 50 ml Q15M PRN IV Till BS 80 mg/dL or above x2; Start 07/29/16 at 08:00 Empaglifozin (Jardiance) 10 mg DAILY@08 PO Last administered on 08/02/16 08:20 ; Admin Dose 10 MG; Start 07/31/16 at 08:00 Diagnostic Test (Pha) (Accu-Chek) 1 ea 02 XX ; Start 07/31/16 at 02:00 Linagliptin 5 mg 5 mg DAILY PO Last administered on 08/02/16 08:20; Admin Dose 5 MG; Start 08/02/16 at 09:00 Ferric Sodium Gluconate Complex/ Sodium Chloride (Ferrlecit/NS) 110 ml @ 100 mls/hr Q24H IVPB Last administered on 08/01/16 17:23; Admin Dose 100 MLS/HR; Start 08/01/16 at 17:00; Stop 08/03/16 at 18:05 WIL ESTRADA MD Aug 02, 2016 08:53
[2016-08-02 12:00] VITALS: BP 120/57; RESP 18
[2016-08-02 13:58] LABS: ANA SCREEN NEGATIVE (NEGATIVE)
--- NOTE | 2016-08-02 14:21 | CONS ---
Date/Time of Note Date/Time of Note DATE: 08/02/16 TIME: 14:19 Assessment/Plan Assessment/Plan Chief Complaint/Hosp Course 41 yo admitted with Normocytic anemia secondary to GI bleed. EGD was done which revealed severe gastritis and duodenal and gastric ulcers. Since blood transfusion patient's Hg has been stable and it does not appear the patient is actively bleeding. -Given history of GI Bleed, will continue iron supplementation IV to help anemia to recover. pt has received 2 days of IV iron -cont PPI per GI -if Hg continues to fall despite IV iron and in the absence of GI bleed, will pursue BM BX at that time . Problems: Consultation Date/Type/Reason Admit Date/Time Jul 28, 2016 at 00:24 Initial Consult Date 07/31/16 Type of Consultation: Hematology Reason for Consultation iron deficiency anemia Referring Provider: LISETTE MELENDEZ 24 HR Interval Summary Free Text/Dictation no acute overnight events. Hg stable. pt continues on IV iron Exam/Review of Systems Vital Signs Vitals Vital Signs Date Time Temp Pulse Resp B/P Pulse Ox O2 Delivery O2 Flow Rate FiO2 08/02/16 07:23 98.0 67 18 95/57 94 07/31/16 08:30 Room Air 07/29/16 18:18 10 Intake and Output 08/01/16 08/01/16 08/02/16 15:00 23:00 07:00 Intake Total 100 ml 2010 ml 1400 ml Balance 100 ml 2010 ml 1400 ml Exam Constitutional: alert, oriented Psych: nl mood/affect, no complaints Head: normocephalic Eyes: nl conjunctiva ENMT: nl external ears & nose Neck: non-tender, supple Respiratory: clear to auscultation, normal air movement Cardiovascular: nl pulses, regular rate and rhythm Gastrointestinal: soft Musculoskeletal: nl extremities to inspection, nl gait and stance Extremities: normal pulses Neurological: QA SOFTWARE TEST ENGINEER II-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 Results Result Diagram: 08/02/16 0455 08/02/16 0455 Results 24 hrs Laboratory Tests Test 08/01/16 17:50 08/01/16 18:39 08/01/16 21:00 08/02/16 04:55 Bedside Glucose 72 115 145 White Blood Count 6.5 Red Blood Count 3.64 L Hemoglobin 10.6 L Hematocrit 32.2 L Mean Corpuscular Volume 88.5 Mean Corpuscular Hemoglobin 29.1 Mean Corpuscular Hemoglobin Concent 32.9 Red Cell Distribution Width 15.1 H Platelet Count 161 Mean Platelet Volume 10.3 Neutrophils % 66.2 Lymphocytes % 23.4 Monocytes % 7.9 Eosinophils % 1.2 Basophils % 0.2 Nucleated Red Blood Cells % 0.3 H Neutrophils # 4.3 Lymphocytes # 1.5 Monocytes # 0.5 Eosinophils # 0.1 Basophils # 0.0 Nucleated Red Blood Cells # 0.0 Sodium Level 142 Potassium Level 3.4 L Chloride Level 110 Carbon Dioxide Level 22 Anion Gap 13 Blood Urea Nitrogen 10 Creatinine 0.81 Glucose Level 126 Calcium Level 9.0 Triglycerides Level 144 Cholesterol Level 119 LDL Cholesterol, Calculated 63 HDL Cholesterol 27 Cholesterol/HDL Ratio 4.4 Test 08/02/16 08:05 08/02/16 12:17 Bedside Glucose 122 106 Medications Medications Current Medications Miscellaneous Information 1 ea NOTE XX ; Start 07/28/16 at 03:30 Glucose (Glutose) 15 gm Q15M PRN PO DECREASED GLUCOSE; Start 07/28/16 at 03:30 Glucose (Glutose) 22.5 gm Q15M PRN PO DECREASED GLUCOSE; Start 07/28/16 at 03: 30 Dextrose (D50w Syringe) 25 ml Q15M PRN IV DECREASED GLUCOSE; Start 07/28/16 at 03:30 Dextrose (D50w Syringe) 50 ml Q15M PRN IV DECREASED GLUCOSE; Start 07/28/16 at 03:30 Glucagon (Glucagen) 1 mg Q15M PRN IM DECREASED GLUCOSE; Start 07/28/16 at 03:30 Glucose (Glutose) 15 gm Q15M PRN BUCCAL DECREASED GLUCOSE; Start 07/28/16 at 03 :30 Pantoprazole (Protonix Iv) 40 mg BID@06,18 IV Last administered on 08/02/16 06 :13; Admin Dose 40 MG; Start 07/29/16 at 06:00 Acetaminophen (Tylenol Tab) 650 mg Q6H PRN PO PAIN AND OR ELEVATED TEMP Last administered on 07/28/16 23:22; Admin Dose 650 MG; Start 07/28/16 at 23:00 Dextrose (D50w Syringe) 25 ml Q15M PRN IV Till BS 80 mg/dL or above x2; Start 07/29/16 at 08:00 Dextrose (D50w Syringe) 50 ml Q15M PRN IV Till BS 80 mg/dL or above x2; Start 07/29/16 at 08:00 Empaglifozin (Jardiance) 10 mg DAILY@08 PO Last administered on 08/02/16 08:20 ; Admin Dose 10 MG; Start 07/31/16 at 08:00 Diagnostic Test (Pha) (Accu-Chek) 1 ea 02 XX ; Start 07/31/16 at 02:00 Linagliptin 5 mg 5 mg DAILY PO Last administered on 08/02/16 08:20; Admin Dose 5 MG; Start 08/02/16 at 09:00 Ferric Sodium Gluconate Complex/ Sodium Chloride (Ferrlecit/NS) 110 ml @ 100 mls/hr Q24H IVPB Last administered on 08/01/16 17:23; Admin Dose 100 MLS/HR; Start 08/01/16 at 17:00; Stop 08/03/16 at 18:05 MARIANNA BRYANT M.D. Aug 02, 2016 14:21
[2016-08-02] MEDS ORDERED: POTASSIUM CHLORIDE (SR) 10 MEQ TAB PO ONE (16:30)
[2016-08-02] MEDS: SOD FERRIC GLUC COMPLX 125 MG in SOD CHLORIDE 0.9% 100 ML IVPB SCH (17:42)
--- NOTE | 2016-08-02 17:42 | CONS ---
Date/Time of Note Date/Time of Note DATE: 08/02/16 TIME: 17:40 Assessment/Plan Assessment/Plan Problems: (1) Diabetes mellitus, new onset Status: Acute Comment: Excellent glycemic control. Cont. current DM regimen after d/c home. Pt. has [facility] Insurance. Refer to me for endocrine f/u as outpt. Consultation Date/Type/Reason Admit Date/Time Jul 28, 2016 at 00:24 Initial Consult Date 07/30/16 Type of Consultation: Endocrinology Reason for Consultation New onset T2DM Referring Provider: LISETTE MELENDEZ 24 HR Interval Summary Constitutional: improved, no complaints Detailed Summary Respiratory: no complaints Cardiovascular: no complaints Gastrointestinal: no complaints Genitourinary: no complaints Musculoskeletal: no complaints Neurologic: no complaints Exam/Review of Systems Vital Signs Vitals VS - Last 72 Hours, by Label Date Time Temp Pulse Resp B/P Pulse Ox O2 Delivery O2 Flow Rate FiO2 08/02/16 07:23 98.0 67 18 95/57 94 08/01/16 19:45 98.0 76 18 96/59 98 08/01/16 07:22 98.3 83 16 104/56 95 07/31/16 20:12 98.0 70 18 116/63 100 07/31/16 08:30 97.6 76 18 97/63 97 Room Air 07/30/16 22:00 98.5 84 18 131/78 98 07/30/16 21:00 80 11 110/75 98 Room Air 07/30/16 20:00 98.8 72 16 115/71 100 Room Air 07/30/16 19:00 74 17 95/52 100 Room Air 07/30/16 18:30 80 14 106/76 98 Room Air Vital Signs Date Time Temp Pulse Resp B/P Pulse Ox O2 Delivery O2 Flow Rate FiO2 08/02/16 07:23 98.0 67 18 95/57 94 07/31/16 08:30 Room Air 07/29/16 18:18 10 Intake and Output 08/01/16 08/01/16 08/02/16 15:00 23:00 07:00 Intake Total 100 ml 2009 ml 1400 ml Balance 100 ml 2010 ml 1400 ml Exam Constitutional: alert, obese, oriented Psych: nl mood/affect, no complaints Respiratory: clear to auscultation, normal air movement Cardiovascular: nl pulses, regular rate and rhythm, No edema, No murmurs/extra sounds, No rub Gastrointestinal: bowel sounds, nl liver, spleen, non-tender, soft, No mass, No rebound or guarding Musculoskeletal: nl extremities to inspection Extremities: normal pulses, No clubbing, No cyanosis, No edema Neurological: MEDICATION AID II-XII intact, nl mental status, nl speech, nl strength Additional Comments Bedside Glucose - 72 Hours Test 07/30/16 21:26 07/31/16 07:49 07/31/16 12:03 07/31/16 17:27 Bedside Glucose 147mg/dL (70-220) 134mg/dL (70-220) 86mg/dL (70-220) 115mg/dL (70-220) Test 07/31/16 20:32 08/01/16 07:58 08/01/16 12:09 08/01/16 17:50 Bedside Glucose 96mg/dL (70-220) 125mg/dL (70-220) 122mg/dL (70-220) 72mg/dL (70-220) Test 08/01/16 18:39 08/01/16 21:00 08/02/16 08:05 08/02/16 12:17 Bedside Glucose 115mg/dL (70-220) 145mg/dL (70-220) 122mg/dL (70-220) 106mg/dL (70-220) Results Result Diagram: 08/02/16 0455 08/02/16 0455 Results 24 hrs Laboratory Tests Test 08/01/16 17:50 08/01/16 18:39 08/01/16 21:00 08/02/16 04:55 Bedside Glucose 72 115 145 White Blood Count 6.5 Red Blood Count 3.64 L Hemoglobin 10.6 L Hematocrit 32.2 L Mean Corpuscular Volume 88.5 Mean Corpuscular Hemoglobin 29.1 Mean Corpuscular Hemoglobin Concent 32.9 Red Cell Distribution Width 15.1 H Platelet Count 161 Mean Platelet Volume 10.3 Neutrophils % 66.2 Lymphocytes % 23.4 Monocytes % 7.9 Eosinophils % 1.2 Basophils % 0.2 Nucleated Red Blood Cells % 0.3 H Neutrophils # 4.3 Lymphocytes # 1.5 Monocytes # 0.5 Eosinophils # 0.1 Basophils # 0.0 Nucleated Red Blood Cells # 0.0 Sodium Level 142 Potassium Level 3.4 L Chloride Level 110 Carbon Dioxide Level 22 Anion Gap 13 Blood Urea Nitrogen 10 Creatinine 0.81 Glucose Level 126 Calcium Level 9.0 Triglycerides Level 144 Cholesterol Level 119 LDL Cholesterol, Calculated 63 HDL Cholesterol 27 Cholesterol/HDL Ratio 4.4 Test 08/02/16 08:05 08/02/16 12:17 Bedside Glucose 122 106 Medications Medications Current Medications Miscellaneous Information 1 ea NOTE XX ; Start 07/28/16 at 03:30 Glucose (Glutose) 15 gm Q15M PRN PO DECREASED GLUCOSE; Start 07/28/16 at 03:30 Glucose (Glutose) 22.5 gm Q15M PRN PO DECREASED GLUCOSE; Start 07/28/16 at 03: 30 Dextrose (D50w Syringe) 25 ml Q15M PRN IV DECREASED GLUCOSE; Start 07/28/16 at 03:30 Dextrose (D50w Syringe) 50 ml Q15M PRN IV DECREASED GLUCOSE; Start 07/28/16 at 03:30 Glucagon (Glucagen) 1 mg Q15M PRN IM DECREASED GLUCOSE; Start 07/28/16 at 03:30 Glucose (Glutose) 15 gm Q15M PRN BUCCAL DECREASED GLUCOSE; Start 07/28/16 at 03 :30 Pantoprazole (Protonix Iv) 40 mg BID@18 IV Last administered on 08/02/16 06 :13; Admin Dose 40 MG; Start 07/29/16 at 06:00 Acetaminophen (Tylenol Tab) 650 mg Q6H PRN PO PAIN AND OR ELEVATED TEMP Last administered on 07/28/16 23:22; Admin Dose 650 MG; Start 07/28/16 at 23:00 Dextrose (D50w Syringe) 25 ml Q15M PRN IV Till BS 80 mg/dL or above x2; Start 07/29/16 at 08:00 Dextrose (D50w Syringe) 50 ml Q15M PRN IV Till BS 80 mg/dL or above x2; Start 07/29/16 at 08:00 Empaglifozin (Jardiance) 10 mg DAILY@08 PO Last administered on 08/02/16 08:20 ; Admin Dose 10 MG; Start 07/31/16 at 08:00 Diagnostic Test (Pha) (Accu-Chek) 1 ea 02 XX ; Start 07/31/16 at 02:00 Linagliptin 5 mg 5 mg DAILY PO Last administered on 08/02/16 08:20; Admin Dose 5 MG; Start 08/02/16 at 09:00 Ferric Sodium Gluconate Complex/ Sodium Chloride (Ferrlecit/NS) 110 ml @ 100 mls/hr Q24H IVPB Last administered on 08/01/16 17:23; Admin Dose 100 MLS/HR; Start 08/01/16 at 17:00; Stop 08/03/16 at 18:05 KEVIN BRYAN MD Aug 02, 2016 17:42
--- NOTE | 2016-08-02 18:40 | PN ---
Date/Time of Note Date/Time of Note DATE: 08/02/16 TIME: 18:37 Assessment/Plan VTE Prophylaxis VTE Prophylaxis Intervention: SCD's Lines/Catheters IV Catheter Type (from Nrs): Peripheral IV Assessment/Plan Chief Complaint/Hosp Course Patient remains hemodynamically stable, blood sugar is well controlled, patient is currently undergoing oral iron replacement, possible DC planning tomorrow. Assessment/Plan -Mild hypokalemia, potassium replacement ordered -Severe gastritis with gastric and duodenal ulcers per EGD, continue Protonix, Dr. Lawrence is following in gastroenterology consultation. -S/p hypovolemic versus hemorrhagic shock. -Status post GI bleed secondary to gastric and duodenal duodenal ulcers. -Anemia of blood loss, status post blood transfusion, continue to monitor H&H. -New onset of diabetes, Dr. Barrow is following an endocrinology consultation, continue current regimen. -Obesity, weight loss advised. Further recommendations based on clinical course. End of care discussed with Dr. Chacon. Problems: Exam/Review of Systems Vital Signs Vitals Vital Signs Date Time Temp Pulse Resp B/P Pulse Ox O2 Delivery O2 Flow Rate FiO2 08/02/16 07:23 98.0 67 18 95/57 94 07/31/16 08:30 Room Air 07/29/16 18:18 10 Intake and Output 08/01/16 08/01/16 08/02/16 15:00 23:00 07:00 Intake Total 100 ml 2010 ml 1400 ml Balance 100 ml 2010 ml 1400 ml Exam Constitutional: alert, obese, well developed Head: normocephalic Neck: non-tender, supple Respiratory: clear to auscultation Cardiovascular: nl pulses Gastrointestinal: non-tender Extremities: normal pulses Neurological: nl mental status Results Result Diagram: 08/02/16 0455 08/02/16 0455 Results 24 hrs Laboratory Tests Test 08/01/16 18:39 08/01/16 21:00 08/02/16 04:55 08/02/16 08:05 Bedside Glucose 115 145 122 White Blood Count 6.5 Red Blood Count 3.64 L Hemoglobin 10.6 L Hematocrit 32.2 L Mean Corpuscular Volume 88.5 Mean Corpuscular Hemoglobin 29.1 Mean Corpuscular Hemoglobin Concent 32.9 Red Cell Distribution Width 15.1 H Platelet Count 161 Mean Platelet Volume 10.3 Neutrophils % 66.2 Lymphocytes % 23.4 Monocytes % 7.9 Eosinophils % 1.2 Basophils % 0.2 Nucleated Red Blood Cells % 0.3 H Neutrophils # 4.3 Lymphocytes # 1.5 Monocytes # 0.5 Eosinophils # 0.1 Basophils # 0.0 Nucleated Red Blood Cells # 0.0 Sodium Level 142 Potassium Level 3.4 L Chloride Level 110 Carbon Dioxide Level 22 Anion Gap 13 Blood Urea Nitrogen 10 Creatinine 0.81 Glucose Level 126 Calcium Level 9.0 Triglycerides Level 144 Cholesterol Level 119 LDL Cholesterol, Calculated 63 HDL Cholesterol 27 Cholesterol/HDL Ratio 4.4 Test 08/02/16 12:17 08/02/16 17:35 Bedside Glucose 106 110 Medications Medications Current Medications Miscellaneous Information 1 ea NOTE XX ; Start 07/28/16 at 03:30 Glucose (Glutose) 15 gm Q15M PRN PO DECREASED GLUCOSE; Start 07/28/16 at 03:30 Glucose (Glutose) 22.5 gm Q15M PRN PO DECREASED GLUCOSE; Start 07/28/16 at 03: 30 Dextrose (D50w Syringe) 25 ml Q15M PRN IV DECREASED GLUCOSE; Start 07/28/16 at 03:30 Dextrose (D50w Syringe) 50 ml Q15M PRN IV DECREASED GLUCOSE; Start 07/28/16 at 03:30 Glucagon (Glucagen) 1 mg Q15M PRN IM DECREASED GLUCOSE; Start 07/28/16 at 03:30 Glucose (Glutose) 15 gm Q15M PRN BUCCAL DECREASED GLUCOSE; Start 07/28/16 at 03 :30 Pantoprazole (Protonix Iv) 40 mg BID@06,18 IV Last administered on 08/02/16 17 :42; Admin Dose 40 MG; Start 07/29/16 at 06:00 Acetaminophen (Tylenol Tab) 650 mg Q6H PRN PO PAIN AND OR ELEVATED TEMP Last administered on 07/28/16 23:22; Admin Dose 650 MG; Start 07/28/16 at 23:00 Dextrose (D50w Syringe) 25 ml Q15M PRN IV Till BS 80 mg/dL or above x2; Start 07/29/16 at 08:00 Dextrose (D50w Syringe) 50 ml Q15M PRN IV Till BS 80 mg/dL or above x2; Start 07/29/16 at 08:00 Empaglifozin (Jardiance) 10 mg DAILY@08 PO Last administered on 08/02/16 08:20 ; Admin Dose 10 MG; Start 07/31/16 at 08:00 Diagnostic Test (Pha) (Accu-Chek) 1 ea 02 XX ; Start 07/31/16 at 02:00 Linagliptin 5 mg 5 mg DAILY PO Last administered on 08/02/16 08:20; Admin Dose 5 MG; Start 08/02/16 at 09:00 Ferric Sodium Gluconate Complex/ Sodium Chloride (Ferrlecit/NS) 110 ml @ 100 mls/hr Q24H IVPB Last administered on 08/02/16 17:42; Admin Dose 100 MLS/HR; Start 08/01/16 at 17:00; Stop 08/03/16 at 18:05 EDUIN DC Aug 02, 2016 18:40
[2016-08-02 19:37] VITALS: BP 105/78; RESP 18
[2016-08-02] MEDS: ACETAMINOPHEN 325 MG TAB PO PRN (21:43)
[2016-08-03] MEDS: ACCU-CHEK XX SCH (02:00)
[2016-08-03 06:03] LABS: ADD SCAN DIFF NO
[2016-08-03] MEDS: PANTOPRAZOLE 40 MG INJ IV SCH ×2 (06:10→17:29)
[2016-08-03 06:13] LABS: BASOPHILS % 0.2 % (0.0-2.0); EOSINOPHILS # 0.1 10^3/ul (0.0-0.5); EOSINOPHILS % 2.2 % (0.0-7.0); HEMATOCRIT 34.6 % (42.0-52.0); HEMOGLOBIN 11.3 g/dl (14.0-18.0); LYMPHOCYTES # 1.9 10^3/ul (0.8-2.9); LYMPHOCYTES % 32.5 % (15.0-51.0); MEAN CORPUSCULAR HEMOGLOBIN 29.1 pg (29.0-33.0); MEAN CORPUSCULAR HGB CONC 32.7 g/dl (32.0-37.0); MEAN CORPUSCULAR VOLUME 89.2 fl (82.0-101.0); MEAN PLATELET VOLUME 10.1 fl (7.4-10.4); MONOCYTE # 0.5 10^3/ul (0.3-0.9); MONOCYTES % 8.8 % (0.0-11.0); NEUTROPHIL # 3.2 10^3/ul (1.6-7.5); NEUTROPHILS % 55.6 % (39.0-77.0); PLATELET COUNT 187 10^3/UL (140-415); RED BLOOD COUNT 3.88 10^6/ul (4.70-6.10); WHITE BLOOD COUNT 5.8 10^3/ul (4.8-10.8)
[2016-08-03 06:39] LABS: CALCIUM 9.3 mg/dl (8.4-10.2)
[2016-08-03] MEDS: INSULIN ASPART [NOVOLOG] 3 ML PEN SC SCH ×3 (08:01→17:21)
[2016-08-03 08:28] VITALS: BP 105/55; RESP 20
[2016-08-03] MEDS: EMPAGLIFLOZIN 10 MG TABLET PO SCH (08:31)
[2016-08-03] MEDS: metFORMIN (XR) 500 MG TAB PO SCH (08:31)
[2016-08-03] MEDS: LINAGLIPTIN 5 MG TABLET PO SCH (08:31)
[2016-08-03] MEDS ORDERED: METF500T3 PO (12:52)
[2016-08-03] MEDS ORDERED: LINA5TAB PO (12:52)
[2016-08-03] MEDS ORDERED: PANT40TA3 PO (12:52)
[2016-08-03] MEDS ORDERED: EMPA10TA PO (12:52)
--- NOTE | 2016-08-03 13:09 | CONS ---
Date/Time of Note Date/Time of Note DATE: 08/03/16 TIME: 13:06 Assessment/Plan Assessment/Plan Problems: (1) Type 2 diabetes mellitus without complications Status: Chronic Comment: Excellent glycemic control on metformin, jardiance, and tradjenta. Pt.should be d/c'ed home on this regimen w/ high likelihood of long-term excellent control and low likelihood of hypoglycemia. F/u w/ me on endo referral from [facility]. Qualifiers: Diabetes mellitus care home insulin use: without intermediate project manager use Qualified Code: E11.9 - Type 2 diabetes mellitus without complication, without long-term current use of insulin Consultation Date/Type/Reason Admit Date/Time Jul 28, 2016 at 00:24 Initial Consult Date 07/30/16 Type of Consultation: Endocrinology Reason for Consultation New onset T2DM OOC Referring Provider: LISETTE MELENDEZ 24 HR Interval Summary Constitutional: improved, no complaints Detailed Summary Respiratory: no complaints Cardiovascular: no complaints Gastrointestinal: no complaints Genitourinary: no complaints Musculoskeletal: no complaints Neurologic: no complaints Exam/Review of Systems Vital Signs Vitals VS - Last 72 Hours, by Label Date Time Temp Pulse Resp B/P Pulse Ox O2 Delivery O2 Flow Rate FiO2 08/03/16 08:28 97.9 60 20 105/55 97 08/02/16 19:37 98.1 71 18 105/78 97 08/02/16 07:23 98.0 67 18 95/57 94 08/01/16 19:45 98.0 76 18 96/59 98 08/01/16 07:22 98.3 83 16 104/56 95 07/31/16 20:12 98.0 70 18 116/63 100 Vital Signs Date Time Temp Pulse Resp B/P Pulse Ox O2 Delivery O2 Flow Rate FiO2 08/03/16 08:28 97.9 60 20 105/55 97 07/31/16 08:30 Room Air Intake and Output 08/02/16 08/02/16 08/03/16 15:00 23:00 07:00 Intake Total 100 ml 1490 ml 400 ml Balance 100 ml 1490 ml 400 ml Exam Constitutional: alert, obese, oriented Psych: nl mood/affect, no complaints Respiratory: clear to auscultation, normal air movement Cardiovascular: nl pulses, regular rate and rhythm, No edema, No murmurs/extra sounds, No rub Gastrointestinal: bowel sounds, nl liver, spleen, non-tender, soft, No mass, No rebound or guarding Musculoskeletal: nl extremities to inspection Extremities: normal pulses, No clubbing, No cyanosis, No edema 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, nl mental status, nl speech, nl strength Additional Comments Bedside Glucose - 72 Hours Test 07/31/16 17:27 07/31/16 20:32 08/01/16 07:58 08/01/16 12:09 Bedside Glucose 115mg/dL (70-220) 96mg/dL (70-220) 125mg/dL (70-220) 122mg/dL (70-220) Test 08/01/16 17:50 08/01/16 18:39 08/01/16 21:00 08/02/16 08:05 Bedside Glucose 72mg/dL (70-220) 115mg/dL (70-220) 145mg/dL (70-220) 122mg/dL (70-220) Test 08/02/16 12:17 08/02/16 17:35 08/02/16 20:30 08/03/16 08:01 Bedside Glucose 106mg/dL (70-220) 110mg/dL (70-220) 133mg/dL (70-220) 113mg/dL (70-220) Test 08/03/16 12:02 Bedside Glucose 115mg/dL (70-220) Results Result Diagram: 08/03/16 0505 08/03/16 0505 Results 24 hrs Laboratory Tests Test 08/02/16 17:35 08/02/16 20:30 08/03/16 05:05 08/03/16 08:01 Bedside Glucose 110 133 113 White Blood Count 5.8 Red Blood Count 3.88 L Hemoglobin 11.3 L Hematocrit 34.6 L Mean Corpuscular Volume 89.2 Mean Corpuscular Hemoglobin 29.1 Mean Corpuscular Hemoglobin Concent 32.7 Red Cell Distribution Width 15.0 H Platelet Count 187 Mean Platelet Volume 10.1 Neutrophils % 55.6 Lymphocytes % 32.5 Monocytes % 8.8 Eosinophils % 2.2 Basophils % 0.2 Nucleated Red Blood Cells % 0.0 Neutrophils # 3.2 Lymphocytes # 1.9 Monocytes # 0.5 Eosinophils # 0.1 Basophils # 0.0 Nucleated Red Blood Cells # 0.0 Sodium Level 139 Potassium Level 4.0 Chloride Level 104 Carbon Dioxide Level 27 Anion Gap 12 Blood Urea Nitrogen 16 Creatinine 1.00 Glucose Level 111 Calcium Level 9.3 Test 08/03/16 12:02 Bedside Glucose 115 Medications Medications Current Medications Miscellaneous Information 1 ea NOTE XX ; Start 07/28/16 at 03:30 Glucose (Glutose) 15 gm Q15M PRN PO DECREASED GLUCOSE; Start 07/28/16 at 03:30 Glucose (Glutose) 22.5 gm Q15M PRN PO DECREASED GLUCOSE; Start 07/28/16 at 03: 30 Dextrose (D50w Syringe) 25 ml Q15M PRN IV DECREASED GLUCOSE; Start 07/28/16 at 03:30 Dextrose (D50w Syringe) 50 ml Q15M PRN IV DECREASED GLUCOSE; Start 07/28/16 at 03:30 Glucagon (Glucagen) 1 mg Q15M PRN IM DECREASED GLUCOSE; Start 07/28/16 at 03:30 Glucose (Glutose) 15 gm Q15M PRN BUCCAL DECREASED GLUCOSE; Start 07/28/16 at 03 :30 Pantoprazole (Protonix Iv) 40 mg BID@,18 IV Last administered on 08/03/16 06 :10; Admin Dose 40 MG; Start 07/29/16 at 06:00 Acetaminophen (Tylenol Tab) 650 mg Q6H PRN PO PAIN AND OR ELEVATED TEMP Last administered on 08/02/16 21:43; Admin Dose 650 MG; Start 07/28/16 at 23:00 Dextrose (D50w Syringe) 25 ml Q15M PRN IV Till BS 80 mg/dL or above x2; Start 07/29/16 at 08:00 Dextrose (D50w Syringe) 50 ml Q15M PRN IV Till BS 80 mg/dL or above x2; Start 07/29/16 at 08:00 Empaglifozin (Jardiance) 10 mg DAILY@08 PO Last administered on 08/03/16 08:31 ; Admin Dose 10 MG; Start 07/31/16 at 08:00 Diagnostic Test (Pha) (Accu-Chek) 1 ea 02 XX ; Start 07/31/16 at 02:00 Linagliptin 5 mg 5 mg DAILY PO Last administered on 08/03/16 08:31; Admin Dose 5 MG; Start 08/02/16 at 09:00 Ferric Sodium Gluconate Complex/ Sodium Chloride (Ferrlecit/NS) 110 ml @ 100 mls/hr Q24H IVPB Last administered on 08/02/16t 17:42; Admin Dose 100 MLS/HR; Start 08/01/16 at 17:00; Stop 08/03/16 at 18:05 KEVIN BRYAN MD Aug 03, 2016 13:09
--- NOTE | 2016-08-03 13:56 | CONS ---
Date/Time of Note Date/Time of Note DATE: 08/03/16 TIME: 13:54 Assessment/Plan Assessment/Plan Chief Complaint/Hosp Course 41 yo admitted with Normocytic anemia secondary to GI bleed. EGD was done which revealed severe gastritis and duodenal and gastric ulcers. Since blood transfusion patient's Hg has been stable and it does not appear the patient is actively bleeding. -Given history of GI Bleed, will continue iron supplementation IV to help anemia to recover. -cont PPI per GI -if Hg continues to fall despite IV iron and in the absence of GI bleed, will pursue BM BX at that time -ok with discharge from hematology standpoint at this time . Problems: Consultation Date/Type/Reason Admit Date/Time Jul 28, 2016 at 00:24 Initial Consult Date 07/31/16 Type of Consultation: Oncology Reason for Consultation anemia Referring Provider: LISETTE MELENDEZ 24 HR Interval Summary Free Text/Dictation no acute overnight events. continues on IV iron Exam/Review of Systems Vital Signs Vitals Vital Signs Date Time Temp Pulse Resp B/P Pulse Ox O2 Delivery O2 Flow Rate FiO2 08/03/16 08:28 97.9 60 20 105/55 97 07/31/16 08:30 Room Air Intake and Output 08/02/16 08/02/16 08/03/16 15:00 23:00 07:00 Intake Total 100 ml 1490 ml 400 ml Balance 100 ml 1490 ml 400 ml Exam Constitutional: alert, oriented Psych: nl mood/affect, no complaints Head: normocephalic Eyes: nl conjunctiva ENMT: nl external ears & nose Neck: non-tender, supple Respiratory: clear to auscultation Cardiovascular: nl pulses, regular rate and rhythm Gastrointestinal: soft Musculoskeletal: nl extremities to inspection, nl gait and stance Extremities: normal pulses Results Result Diagram: 08/03/16 0505 08/03/16 0505 Results 24 hrs Laboratory Tests Test 08/02/16 17:35 08/02/16 20:30 08/03/16 05:05 08/03/16 08:01 Bedside Glucose 110 133 113 White Blood Count 5.8 Red Blood Count 3.88 L Hemoglobin 11.3 L Hematocrit 34.6 L Mean Corpuscular Volume 89.2 Mean Corpuscular Hemoglobin 29.1 Mean Corpuscular Hemoglobin Concent 32.7 Red Cell Distribution Width 15.0 H Platelet Count 187 Mean Platelet Volume 10.1 Neutrophils % 55.6 Lymphocytes % 32.5 Monocytes % 8.8 Eosinophils % 2.2 Basophils % 0.2 Nucleated Red Blood Cells % 0.0 Neutrophils # 3.2 Lymphocytes # 1.9 Monocytes # 0.5 Eosinophils # 0.1 Basophils # 0.0 Nucleated Red Blood Cells # 0.0 Sodium Level 139 Potassium Level 4.0 Chloride Level 104 Carbon Dioxide Level 27 Anion Gap 12 Blood Urea Nitrogen 16 Creatinine 1.00 Glucose Level 111 Calcium Level 9.3 Test 08/03/16 12:02 Bedside Glucose 115 Medications Medications Current Medications Miscellaneous Information 1 ea NOTE XX ; Start 07/28/16 at 03:30 Glucose (Glutose) 15 gm Q15M PRN PO DECREASED GLUCOSE; Start 07/28/16 at 03:30 Glucose (Glutose) 22.5 gm Q15M PRN PO DECREASED GLUCOSE; Start 07/28/16 at 03: 30 Dextrose (D50w Syringe) 25 ml Q15M PRN IV DECREASED GLUCOSE; Start 07/28/16 at 03:30 Dextrose (D50w Syringe) 50 ml Q15M PRN IV DECREASED GLUCOSE; Start 07/28/16 at 03:30 Glucagon (Glucagen) 1 mg Q15M PRN IM DECREASED GLUCOSE; Start 07/28/16 at 03:30 Glucose (Glutose) 15 gm Q15M PRN BUCCAL DECREASED GLUCOSE; Start 07/28/16 at 03 :30 Pantoprazole (Protonix Iv) 40 mg BID@,18 IV Last administered on 08/03/16 06 :10; Admin Dose 40 MG; Start 07/29/16 at 06:00 Acetaminophen (Tylenol Tab) 650 mg Q6H PRN PO PAIN AND OR ELEVATED TEMP Last administered on 08/02/16 21:43; Admin Dose 650 MG; Start 07/28/16 at 23:00 Dextrose (D50w Syringe) 25 ml Q15M PRN IV Till BS 80 mg/dL or above x2; Start 07/29/16 at 08:00 Dextrose (D50w Syringe) 50 ml Q15M PRN IV Till BS 80 mg/dL or above x2; Start 07/29/16 at 08:00 Empaglifozin (Jardiance) 10 mg DAILY@08 PO Last administered on 08/03/16 08:31 ; Admin Dose 10 MG; Start 07/31/16 at 08:00 Diagnostic Test (Pha) (Accu-Chek) 1 ea 02 XX ; Start 07/31/16 at 02:00 Linagliptin 5 mg 5 mg DAILY PO Last administered on 08/03/16 08:31; Admin Dose 5 MG; Start 08/02/16 at 09:00 Ferric Sodium Gluconate Complex/ Sodium Chloride (Ferrlecit/NS) 110 ml @ 100 mls/hr Q24H IVPB Last administered on 08/02/16 17:42; Admin Dose 100 MLS/HR; Start 08/01/16 at 17:00; Stop 08/03/16 at 18:05 MARIANNA BRYANT M.D. Aug 03, 2016 13:56
[2016-08-03] MEDS: SOD FERRIC GLUC COMPLX 125 MG in SOD CHLORIDE 0.9% 100 ML IVPB SCH (15:04)
[2016-08-03] MEDS ORDERED: PANTOPRAZOLE (EC) 40 MG TAB PO SCH (18:00)
== END 2016-08-03 18:10 | disposition home or self-care (01) | DRG 811 ==
LOC: E/R 20:41 → PP2 07-28 00:24 → ICU 07-28 19:42 → UNDODISIN 07-31 00:34
PROVIDERS: ADMIT Internal Medicine; ATTEND Internal Medicine
PROC: 30233N1 Transfusion of Nonautologous Red Blood Cells into Peripheral Vein, Percutaneous Approach (ICD-10-PCS; 2016-07-28)
PROC: 0DJ08ZZ Inspection of Upper Intestinal Tract, Via Natural or Artificial Opening Endoscopic (ICD-10-PCS; principal; 2016-07-30)
DX: D62 Acute posthemorrhagic anemia (principal); K29.71 Gastritis, unspecified, with bleeding; R57.1 Hypovolemic shock; K25.4 Chronic or unspecified gastric ulcer with hemorrhage; K26.4 Chronic or unspecified duodenal ulcer with hemorrhage; E87.2 Acidosis; E11.65 Type 2 diabetes mellitus with hyperglycemia; R55 Syncope and collapse; D72.829 Elevated white blood cell count, unspecified; E86.0 Dehydration; E87.6 Hypokalemia; E66.9 Obesity, unspecified; Z68.33 Body mass index [BMI] 33.0-33.9, adult; Z87.891 Personal history of nicotine dependence
CPT/HCPCS: 36415; 36430; 70450; 71010; 73560; 80048; 80053; 80061; 81003; 82607; 82728; 82746; 82803; 82962; 83036; 83540; 83605; 83615; 83735; 84100; 84443; 84484; 85014; 85018; 85025; 85045; 85610; 85730; 86038; 86644; 86850; 86900; 86901; 86920; 87040; 87086; 88305; 88312; 93005; 96372; 96374; 96375; C9113; J1815; J1885; J2250; J2543; J2765; J2916; J3420; J3480; J7030; J7040; J7120; P9016

== ENCOUNTER 2016-12-26 11:50 | Emergency (ER) | payer OTHER ==
[~2016-12-26] VITALS: Wt 80.2 kg
[~2016-12-26 11:50] MED LIST changes: -ACET325T33 PO; +EMPA10TA PO; -FAMO-18 PO; -HYDR-3498 PO; +LINA5TAB PO; -LOPE2CAP PO; +METF500T3 PO; +PANT40TA3 PO
[2016-12-26] MEDS ORDERED: AMOX500C2 PO (12:18)
[2016-12-26] MEDS ORDERED: IBUP-1542 PO (12:18)
[2016-12-26] MEDS ORDERED: LIDO20SO19 MM (12:18)
--- NOTE | 2016-12-26 12:58 | ERD ---
ER Documentation Chief Complaint Chief Complaint mouth pain and sore throat HPI 41-year-old male comes in with mouth sores, sore throat and fever for the past 2 days. Patient states that he developed a fever and treated himself with ibuprofen at home the last time was yesterday. He has not had any difficulty swallowing, voice changes or drooling. ROS All systems reviewed and are negative except as per history of present illness. Medications Home Meds Active Scripts Lidocaine (Lidocaine Viscous) 100 Ml Soln, 10 ML MM TID, #100 Prov:KVNG GARCIA PA-C 12/26/16 Ibuprofen* (Motrin*) 600 Mg Tab, 600 MG PO Q6, #30 TAB Prov:KVNG GARCIA PA-C 12/26/16 Amoxicillin* (Amoxicillin*) 500 Mg Cap, 500 MG PO TID for 7 Days, CAP Prov:KVNG GARCIA PA-C 12/26/16 Pantoprazole* (Protonix*) 40 Mg Tablet.dr, 40 MG PO BID for 30 Days, TAB Prov:EDUIN DC 08/03/16 Metformin* (Glucophage* XR) 500 Mg Tab.sr.24h, 500 MG PO PC BREAKFAST DINNER for 30 Days Prov:EDUIN DC 08/03/16 Linagliptin (TRADJENTA) 5 Mg Tablet, 5 MG PO DAILY for 30 Days, TAB Prov:EDUIN DC 08/03/16 Empagliflozin (Jardiance) 10 Mg Tablet, 10 MG PO DAILY@08 for 30 Days, TAB Prov:EDUIN DC 08/03/16 Allergies Allergies: Coded Allergies: No Known Drug Allergies (Verified Allergy, Unknown, 07/27/16) PMhx/Soc Medical and Surgical Hx: pt denies Medical Hx, pt denies Surgical Hx History of Surgery: No Anesthesia Reaction: No Hx Neurological Disorder: No Hx Respiratory Disorders: No Hx Cardiac Disorders: No Hx Psychiatric Problems: No Hx Miscellaneous Medical Probl: No Hx Alcohol Use: Yes (OCCASIONALLY) Hx Substance Use: No Hx Tobacco Use: No Smoking Status: Never smoker Physical Exam Vitals Vital Signs Date Time Temp Pulse Resp B/P Pulse Ox O2 Delivery O2 Flow Rate FiO2 12/26/16 11:51 98.3 81 20 116/67 98 Physical Exam General: Well-developed, well-nourished. The patient appears in no acute distress. HEENT: Head is normocephalic, atraumatic. No scleral icterus. Pupils are equal , round, and reactive. There is an ulcer at the tip of the tongue on the right side. There is a blister seen on the lower lip on the right side as well. Tonsils have exudate, uvula is midline, there is no trismus, voice changes or drooling. Neck: Supple. Nontender. Masses appreciated, no meningismus. Has full range of motion of the neck. Lungs: Clear to auscultation. Normal air movement. Heart: Regular rate and rhythm. S1 and S2 are normal. No murmurs, gallops, or rubs. Abdomen: Soft, nontender, nondistended. Bowel sounds are normoactive. Extremities: No clubbing or cyanosis. Normal pulses. Moving extremities x 4. No weakness. Neurologic: Alert and oriented 3. No focal deficits. Skin: Normal turgor. No rash or lesions. Procedures/MDM 41-year-old male comes in with blisters, and ulcer in the mouth, patient's differential diagnosis includes stomatitis, strep, HSV, hand-foot mouth disease , cellulitis, herpes, abscess. Given the appreciation of the blisters, it is most likely a viral infection. Patient will be covered with amoxicillin, given ibuprofen and viscous lidocaine for pain. Departure Diagnosis: Primary Impression: Stomatitis Condition: Good Patient Instructions: Gingivo - Stomatitis (Child) KVNG GARCIA PA-C Dec 26, 2016 12:58
== END 2016-12-26 12:40 | disposition home or self-care (01) ==
LOC: FTE 11:50
DX: K12.1 Other forms of stomatitis (principal); Z79.84 Long term (current) use of oral hypoglycemic drugs
CPT/HCPCS: 99283

== ENCOUNTER → 2017-10-15 | Emergency (ER) | END | disposition home or self-care (01) ==